=== PATIENT | female | born 1945 | race Caucasian/White ===

== ENCOUNTER 2016-06-27 15:26 | Emergency (ER) | payer OTHER ==
[2016-06-27 15:35] VITALS: BP 157/81; PULSE 88; TEMP 97.7; BMI 26.5
--- NOTE | 2016-06-27 16:07 | PDOC ---
History of Present Illness - General Chief Complaint: Injury Stated Complaint: FALL, RT WRIST PAIN Time Seen by Provider: 06/27/16 15:44 History Source: Patient Exam Limitations: No Limitations - History of Present Illness Initial Comments: CHIEF COMPLAINT: 70 y/o afebrile female with no PMH HTN, HLD, NIDDM c/o right rib pain and right wrist pain s/p slip and fall. HISTORY OF PRESENT ILLNESS: The patient slipped and fell outside today on black ice. She states she fell onto her right side and right hand. She now has right sided rib pain and right wrist pain. The patient denies head trauma, LOC, SOB, hemoptysis, n/v/d, swelling/redness to affected areas, decreased ROM of right wrist. Vital signs on arrival are within normal limits. REVIEW OF SYSTEMS: GENERAL/CONSTITUTIONAL: No fever/chills. No weakness. No weight change. HEAD, EYES, EARS, NOSE AND THROAT: No change in vision. No ear pain or discharge. No sore throat. CARDIOVASCULAR: +right rib pain. No shortness of breath. RESPIRATORY: No cough, wheezing, or hemoptysis. GASTROINTESTINAL: See history of present illness. GENITOURINARY: No dysuria, frequency, or change in urination. MUSCULOSKELETAL: +right hand and wrist pain. No neck or back pain. SKIN: No rash or easy bruising. NEUROLOGIC: No headache, vertigo, loss of consciousness, or loss of sensation. PHYSICAL EXAM: GENERAL: The patient is awake, alert, and fully oriented, in no acute distress. SHe is well appearing and ambulatory. HEAD: Normal with no signs of trauma. ENT: Pupils equal, round and reactive to light, extraocular movements intact, sclera anicteric, conjunctiva clear. Neck supple. LUNGS: Clear to auscultation bilaterally. Normal excursion. No respiratory distress or use of accessory muscles. CHEST WALL: +TTP of right midaxillary ribs from T7-T8. No flail chest. No deformities. No ecchymosis or abrasions. CV: RRR, S1/S2, no MRG. Cap refill < 2 sec. ABDOMEN: Soft, non-distended, non-tender even to deep palpation, no hepatomegaly or splenomegaly, no masses. EXTREMITIES: Normal range of motion, no edema. No erythema or ecchymosis to right forearm, wrist or hand. FROM of right wrist and hand. TTP of right wrist and 3rd and 4th metacarpal bones without obvious deformities or crepitus. NEUROLOGICAL: Normal speech, normal gait. CN II-XII grossly intact. PSYCH: Normal mood, normal affect. SKIN: Warm, dry, normal turgor, no rashes or lesions noted. Past History - Past Medical History Allergies/Adverse Reactions: Allergies Allergy/AdvReac Type Severity Reaction Status Date / Time streptomycin [Streptomycin] Allergy Intermediate Rash Verified 06/27/16 15:31 COLOGNE Allergy Uncoded 06/27/16 15:31 hair dye Allergy Uncoded 06/27/16 15:31 Home Medications: Ambulatory Orders Alendronate Na [Fosamax] 70 mg PO Q7D 01/29/15 Amlodipine Besylate 5 mg PO DAILY 01/29/15 Aspirin [ASA -] 81 mg PO DAILY 01/29/15 Canagliflozin/Metformin HCl [Invokamet 50-1,000 mg Tablet] 1 each PO DAILY 01/29 Montelukast Na [Singulair -] 10 mg PO HS 01/29/15 Simvastatin 40 mg PO DAILY 01/29/15 Diabetes: Yes (neuropathy) GI Disorders: Yes (uti) HTN: Yes Hypercholesterolemia: Yes Kidney Stones: Yes - Surgical History Orthopedic Surgery: Yes (KNEE SX, HAND SX) - Psycho/Social/Smoking Cessation Hx Anxiety: No Suicidal Ideation: No Smoking History: Never smoked Have you smoked in the past 12 months: No Number of Cigarettes Smoked Daily: 0 Information on smoking cessation initiated: No Hx Alcohol Use: No Drug/Substance Use Hx: No Substance Use Type: None *Physical Exam - Vital Signs Last Vital Signs Temp Pulse Resp BP Pulse Ox 97.7 F 88 18 157/81 97 06/27/16 15:33 06/27/16 15:33 06/27/16 15:33 06/27/16 15:33 06/27/16 15:33 Procedures - Splinting Splint Location: Right: Hand Pre-Proc Neuro Vasc Exam: normal Hand-Made Type: orthoglass Splint Type: Yes: Ulnar (ulnar guttar) Post-Proc Neuro Vasc Exam: normal Medical Decision Making - Medical Decision Making A/P: 70 y/o female with right rib and right wrist pain s/p slip and fall. Plan is as follows: 1. rib xray 2. Right hand/wrist pain Xray right hand/wrist IMPRESSION: Acute proximal fifth metacarpal fracture. Rib xray IMPRESSION: No radiographic evidence of fracture Put hand in ulnar guttar splint and provided ortho referral. Instructed her to call ortho tomorrow to schedule f/u appointment The patient verbalizes understanding of all instructions, has no further questions and is awaiting discharge. *DC/Admit/Observation/Transfer Diagnosis at time of Disposition: Fracture, metacarpal Qualifiers: Encounter type: initial encounter Metacarpal bone: fifth Fracture type: closed Fracture morphology: unspecified fracture morphology Fracture alignment: displaced Laterality: unspecified laterality - Discharge Dispostion Disposition: HOME Condition at time of disposition: Improved - Referrals Referrals: Kevin Toro MD [Primary Care Provider] - Ren Bedolla MD [Staff Physician] - Call tomorrow - Patient Instructions Printed Discharge Instructions: DI for Boxer's Fracture Additional Instructions: Discharge Instructions: -Call Dr. Bedolla tomorrow and schedule follow up appointment -Take Tylenol or motrin for pain
== END 2016-06-27 19:40 | disposition home or self-care (01) ==
LOC: JERFT 15:26
PROC: 2W38X1Z Immobilization of Right Upper Extremity using Splint (ICD-10-PCS; principal; 2016-06-27)
DX: S62.316A Displaced fracture of base of fifth metacarpal bone, right hand, initial encounter for closed fracture (principal); W00.2XXA Other fall from one level to another due to ice and snow, initial encounter; Y93.89 Activity, other specified; Y92.480 Sidewalk as the place of occurrence of the external cause; I10 Essential (primary) hypertension; E11.40 Type 2 diabetes mellitus with diabetic neuropathy, unspecified; Z79.84 Long term (current) use of oral hypoglycemic drugs; E78.00 Pure hypercholesterolemia, unspecified
CPT/HCPCS: 29125; 71101-TC-RT; 73110-TC-RT; 73130-TC-RT; 99281-25

== ENCOUNTER 2016-09-14 06:12 | Day surgery (SDC) | payer OTHER ==
[2016-09-14 06:31] VITALS: BMI 26.3
[2016-09-14 06:52] LABS: BASOPHIL 0.4 % (0-2.0); EOSINOPHIL 2.2 % (0-4.5); MCHC 33.3 g/dl (32.0-36.0); MEAN CELL VOLUME 87.1 fl (80-96); MEAN PLT VOLUME 7.9 fl (7.5-11.1); NEUTROPHILS 45.2 % (42.8-82.8); PLATELET COUNT 227 K/MM3 (134-434); RDW 14.3 % (11.6-15.6); WHITE BLOOD COUNT 5.5 K/mm3 (4.0-10.0)
[2016-09-14] MEDS ORDERED: ROPIVACAINE HCL 0.5% 30ML VIAL ONE (08:34)
[2016-09-14] MEDS ORDERED: MIDAZOLAM HCL 2 MG/2 ML SINGLE DOSE VIAL ONE ×2 (08:36)
[2016-09-14] MEDS ORDERED: LIDOCAINE HCL/PF 2% SDV 5ML VIAL ONE (08:48)
[2016-09-14] MEDS ORDERED: PROPOFOL 20 ML ONE ×2 (08:48→10:02)
--- NOTE | 2016-09-14 09:20 | HP ---
Satellite [facility] - Chief Complaint Chief Complaint: left shoulder pain - Past Medical History Allergies/Adverse Reactions: Allergies Allergy/AdvReac Type Severity Reaction Status Date / Time streptomycin [Streptomycin] Allergy Intermediate Rash Verified 06/27/16 15:31 COLOGNE Allergy Uncoded 06/27/16 15:31 hair dye Allergy Uncoded 06/27/16 15:31 - Current Medications Current Medications: Home Medications Medication Instructions Recorded Aspirin [ASA -] 81 mg PO DAILY 01/29/15 Simvastatin 20 mg PO DAILY 01/29/15 Alendronate Na [Fosamax (Weekly)] 70 mg PO Q7D 09/14/16 Glipizide [Glipizide ER] 2.5 mg PO DAILY 09/14/16 Hydrocodone/Acetaminophen 1 each PO Q6H #40 tablet MDD 4 09/14/16 [Hydrocodon-Acetaminoph 7.5-325] Isoniazid 300 mg PO DAILY 09/14/16 Metformin HCl [Metformin HCl ER] 1,000 mg PO BID 09/14/16 Pyridoxine HCl 25 mg PO DAILY 09/14/16 Satellite Physical Exam - Physical Examination Vital Signs: Vital Signs Period Temp Pulse Resp BP Sys/Mueller Pulse Ox Last 24 Hr 98.0 F 67 20 132/79 97 General Appearance: Well Nourished, Well Developed, Alert & Oriented x3 ENT: Clear Lung: Normal air movement Heart: Regular rate & rhythm Extremities: Other (left shoulder- +ttp,decr rom ,+ neer, + empty can, + cowart , nvi MRI + RCT) Neurological: Intact, Alert, Oriented Satellite Impression/Plan - Impression/Plan Impression: left shoulder rct Operative Procedure: left shoulder arthroscopy with VEL MCNEAL Date to be Performed: 09/14/16
[2016-09-14] MEDS ORDERED: oxyCODONE HCL 5 MG TABLET PO PRN (09:41)
[2016-09-14] MEDS ORDERED: ONDANSETRON 4 MG/2 ML VIAL IVPUSH PRN (09:41)
[2016-09-14] MEDS ORDERED: LACTATED RINGERS SOLUTION 1,000 ML IV SCH (09:45)
[2016-09-14] MEDS ORDERED: ePHEDrine SULFATE 50 MG/1 ML AMPULE ONE (09:55)
[2016-09-14] MEDS ORDERED: ceFAZolin SODIUM 1 GM VIAL IVPB ONE ×2 (10:04→10:05)
[2016-09-14] MEDS ORDERED: DEXAMETHASONE SOD PHOSPHATE 4 MG/1 ML VIAL ONE ×2 (10:30→10:45)
[2016-09-14] MEDS ORDERED: ceFAZolin SODIUM 1 GM VIAL ONE (10:53)
--- NOTE | 2016-09-14 11:30 | OP ---
Operative Note - Note: Operative Date: 09/14/16 Pre-Operative Diagnosis: left shoulder RTC tear, subacromial impingement, partial biceps tendon rupture Operation: left shoulder arthroscopy, subacromial decompression, extensive debridement, mini open RTC repair Implants: Arthrex Swivel Lock anchor x 2, fiber wire Surgeon: Ren Bedolla Lasting Room Machine Operator: Charlie Cintron Anesthesiologist/EVP [employer] EXPERIENCE STRATEGY: Alayna Weaver Anesthesia: General, Local Specimens Removed: shavings Estimated Blood Loss (mls): 75 Drains, Volume Out (mls): 0 Blood Volume Replaced (mls): 0 Fluid Volume Replaced (mls): 1,000 Operative Report Dictated: Yes
[2016-09-14 12:04] VITALS: TEMP 97.6
[2016-09-14] MEDS ORDERED: ACETAMINOPHEN 325 MG TABLET (FP) ONE (14:31)
[2016-09-14 15:38] VITALS: PULSE 100
[2016-09-14 17:58] VITALS: BP 130/74
--- NOTE | 2016-09-15 12:01 | OP ---
DATE OF OPERATION: 09/14/2016 PREOPERATIVE DIAGNOSIS: Left shoulder impingement syndrome and rotator cuff tear. POSTOPERATIVE DIAGNOSIS: Left shoulder impingement syndrome and rotator cuff tear. PROCEDURE: Left shoulder arthroscopy, subacromial decompression, extensive debridement, and mini open rotator cuff repair. SURGEON: Naun Pedersen MD COMPLIANCE PARALEGAL: DEVI Rider, ANESTHESIA: Alayna Weaver CRNA. Left interscalene block, LMA anesthesia. DRAINS: None. COMPLICATIONS: None. BLOOD LOSS: 50 mL. BLOOD GIVEN: None. FLUID REPLACEMENT: 1000 mL Plasma-Lyte INDICATIONS: This patient is a 70-year-old female with a preoperative diagnosis of a left shoulder subacromial impingement, partial biceps tendon rupture, and rotator cuff tear. After understanding the potential risks, complications, alternatives, benefits to surgery versus nonsurgical treatment, the patient elected to undergo this procedure. DESCRIPTION OF PROCEDURE: The patient was brought to the operating room. Peripheral IV place. IV sedation given. Left interscalene block was performed. Then 1 g IV Ancef was given. She was placed into the beach chair position with ample padding throughout. The left upper extremity was prepped and draped in the usual sterile fashion. The bony landmarks were marked out with a marking pen. The posterior portal established. Diagnostic glenohumeral arthroscopy was performed. The patient was seen to have a bad shoulder. She had significant rotator cuff tear where the humeral head was already in contact with the undersurface of the acromion. She had a 50% biceps tendon rupture. Therefore, an anterior portal was established. Using the straight shaver under direct visualization, I debrided the torn portion of the biceps, but enough was left in place. I believe it will be functional and less painful. There is a lot of cartilage and loose debris floating around the joint. This was removed. The undersurface of the rotator cuff tear was mildly debrided. Partial synovectomy was performed in the joint. Next, our attention was turned to the subacromial space. A lateral portal was established under direct visualization with a spinal needle. A No. 15 scalpel blade and a green cannula was introduced into the joint. The patient had an extensive amount of inflammatory bursitis. This was removed with the ArthroCare wand and the straight shaver. After extensive debridement, I was able to see a large subacromial spur and a large crescent-shaped rotator cuff tear. Luckily, we were able to grab the rotator cuff with a grasper. I feel there was good substance for repair, and it was not as retracted as expected. Next, a 5.5-mm oval bur was used to take down a subacromial spur. It was straightened up with the bur and reversed in the shaver. Photographs were taken before and after. The entire area was extensively irrigated and washed out. Under direct visualization, 6 FiberWires were placed throughout the rotator cuff with the Intelomed needle passer. Next, we converted to a mini open rotator cuff repair. The incision was extended with a No. 15 scalpel blade. Subcutaneous hemostasis was achieved with the Bovie cautery. Elvira retractor placed into the wound. Additional open bursectomy was performed. The rotator cuff was visualized. I was able to mobilize it after using a Galvez elevator for mobilization and break into scar tissue and additional bursa then came down quite nicely. The bed was prepared. Additional bursectomy performed. The patient had very sharp spurs on the humeral head at the insertion of the rotator cuff. These were taken down and the area mildly decorticated with the bur. I was able to feel my finger and look at it, and there were no other osteophytes. It looked much better than before. Next, using a standard technique, we put 6 tails through a posterior and 6 tails through an anterior SwiveLock Arthrex anchor. Put the posterior one down first then the anterior one. They both came down quite nicely. The rotator cuff was brought down to the humeral head. It moved as a unit with the humerus, and overall the repair was quite good. The area was irrigated and washed out. The deltoid fascial layer closed with 0 Vicryl suture, 2-0 Vicryl used to close the deep dermal layer. Running subcuticular 3-0 V-Lock suture was used. The anterior and posterior portal was closed with 3-0 nylon. The main incision was covered with SwiftSet skin glue, Steri-Strips, and all 3 were covered with Aquacel dressing. Total operative time about 1 hour. Blood loss was about 75 mL. There were no complications during the case. The patient tolerated the procedure well. She was put into a shoulder immobilizer, extubated, and brought to the ambulatory recovery room in stable condition. NAUN PEDERSEN M.D. [id number]
--- NOTE | 2016-09-15 12:35 | PATH ---
Surgical Pathology Report Patient Name: BESSIE GONSALES [facility]. Rec. #: [id number] /Age/Gender: 1945 (Age: 70) / F Account: [id number] Location: [facility] Taken: 09/14/2016 Received: 09/14/2016 Reported: 09/15/2016 Physicians: Ren Bedolla M.D. Specimen(s) Received SHAVINGS LEFT SHOULDER Clinical History Tear left shoulder Final Diagnosis SOFT TISSUE, LEFT SHOULDER, ARTHROSCOPIC SHAVINGS: SYNOVIUM AND FIBROCARTILAGE WITH MYXOHYALINE DEGENERATION AND GRANULATION TISSUE. FRAGMENTS OF UNREMARKABLE BONE AND SKELETAL MUSCLE. Electronically Signed Delonte Gill M.D. Gross Description Received in formalin, labeled "left shoulder shavings" is a 3.5 x 2.6 x 0.3 cm aggregate of castañeda-yellow soft tissue fragments. A assisted sales representative portion is submitted in one cassette. 09/14/201609/14/2016
== END 2016-09-14 17:55 | disposition home or self-care (01) ==
LOC: JASU-SURG 06:12
PROVIDERS: ATTEND Orthopaedic Surgery
PROC: 0RBK4ZZ Excision of Left Shoulder Joint, Percutaneous Endoscopic Approach (ICD-10-PCS; principal; 2016-09-14 09:00)
PROC: 0LQ20ZZ Repair Left Shoulder Tendon, Open Approach (ICD-10-PCS; 2016-09-14 09:00)
DX: M75.42 Impingement syndrome of left shoulder (principal); M75.102 Unspecified rotator cuff tear or rupture of left shoulder, not specified as traumatic
CPT/HCPCS: 36415; 85025; 88304-TC; 94760

== ENCOUNTER 2016-09-17 16:44 | Emergency (ER) | payer OTHER ==
[2016-09-17 17:16] VITALS: BP 178/87; PULSE 101; TEMP 98; BMI 30.2
[2016-09-17] MEDS ORDERED: SODIUM PHOSPHATE/NA BIPHOS 133 ML ENEMA PR ONE (17:49)
--- NOTE | 2016-09-17 17:53 | PDOC ---
History of Present Illness - History of Present Illness Initial Comments: 09/17/16 19:37 Patient is a 70 year old female, s/p left shoulder arthroscopy (09/14/16), with significant medical hx of diabetes and nephrolithiasis who is presenting to the ED with constipation for three days. Patient is accompanied by family members who provided history. The patient is complaining of constipation and rectal pain since starting hydrocodone from her shoulder surgery earlier this week. Today the patient took two oral laxatives and a rectal enema with no relief. Her last bowel movement was on 09/13, one day before her surgery. She denies any abdominal pain, nausea, vomiting, fevers or chills. Pt denies feeling like there stool that will not pass. PMD: Kevin Toro MD Allergies: streptomycin Surgical Hx: Left shoulder arthroscopy, renal stent placement and removal, c- section <Genet Liang - Last Filed: 09/17/16 19:37> - General History Source: Patient Exam Limitations: No Limitations <Wood Orlando - Last Filed: 09/17/16 20:23> - General Chief Complaint: Constipation Stated Complaint: CONSTIPATION Time Seen by Provider: 09/17/16 17:12 Past History <Genet Liang - Last Filed: 09/17/16 19:37> - Past Medical History Anemia: No Asthma: No Cancer: No Cardiac Disorders: No CVA: No COPD: No CHF: No Dementia: No Diabetes: Yes (neuropathy) GI Disorders: Yes (uti) Disorders: Yes (KIDNEY STONES) HTN: Yes Hypercholesterolemia: Yes Kidney Stones: Yes Liver Disease: No Seizures: No Thyroid Disease: No - Surgical History Abdominal Surgery: No Appendectomy: No Cardiac Surgery: No Cholecystectomy: No Lung Surgery: No Neurologic Surgery: No Orthopedic Surgery: Yes (KNEE SX, HAND SX) - Psycho/Social/Smoking Cessation Hx Anxiety: No Suicidal Ideation: No Smoking History: Never smoked Have you smoked in the past 12 months: No Number of Cigarettes Smoked Daily: 0 Hx Alcohol Use: No Drug/Substance Use Hx: No Substance Use Type: None <Wood Orlando - Last Filed: 09/17/16 20:23> - Past Medical History Allergies/Adverse Reactions: Allergies Allergy/AdvReac Type Severity Reaction Status Date / Time streptomycin [Streptomycin] Allergy Intermediate Rash Verified 09/17/16 17:07 COLOGNE Allergy Uncoded 09/17/16 17:07 hair dye Allergy Uncoded 09/17/16 17:07 Home Medications: Ambulatory Orders Alendronate Na [Fosamax] 70 mg PO Q7D 09/17/16 Glipizide 2.5 mg PO DAILY 09/17/16 Hydrocodone/Acetaminophen [Hydrocodon-Acetaminoph 2.5-325] 1 each PO PRN PRN 01/26 Isoniazid 300 mg PO DAILY 09/17/16 Lisinopril 5 mg PO DAILY 09/17/16 Metformin HCl [Metformin HCl ER] 1,000 mg PO BID 09/17/16 Polyethylene Glycol 3350 [Miralax (For Bowel Prep) -] 17 gm PO DAILY #1 bottle 09/17/16 Pyridoxine HCl 25 mg PO DAILY 09/17/16 Review of Systems - Review of Systems Comments:: 09/17/16 19:38 CONSTITUTIONAL: No reported: Fever, Chills, Diaphoresis, Generalized Weakness, Malaise, Loss of Appetite HEENT: No reported: Rhinorrhea, Nasal Congestion, Throat Pain, Throat Swelling, Difficulty Swallowing, Mouth Swelling, Ear Pain, Eye Pain, Visual Changes CARDIOVASCULAR: No reported: Chest Pain, Syncope, Palpitations, Irregular Heart Rate, Lightheadedness, Peripheral Edema RESPIRATORY: No reported: Cough, Shortness of Breath, SOB with Exertion, Orthopnea, Wheezing , Stridor, Hemoptysis GASTROINTESTINAL: Reported: Constipation, Rectal Pain No reported: Abdominal pain, Abdominal Distension, Nausea, Vomiting, Diarrhea, Melena, Hematochezia GENITOURINARY: No reported: Dysuria, Frequency, Urgency, Hesitancy, Flank Pain, Genital Pain MUSCULOSKELETAL: No reported: Myalgia, Arthralgia, Joint Swelling, Back pain, Neck Pain SKIN: No reported: Rash, Itching, Pallor HEMEATOLOGIC/IMMUNOLOGIC: No reported: Easy Bleeding, Easy Bruising, Lymphadenopathy, Frequent infections ENDOCRINE: No reported: Unexplained Weight Gain, Unexplained Weight Loss, Heat Intolerance , Cold Intolerance NEUROLOGIC: No reported: Headache, Focal Weakness, Paresthesias, Vertigo, Lightheadedness, Unsteady Gait, Seizure, Mental Status Changes, Incontinence PSYCHIATRIC: No reported: Anxiety, Depression <Genet Liang - Last Filed: 09/17/16 19:37> *Physical Exam - Vital Signs Last Vital Signs Temp Pulse Resp BP Pulse Ox 98.0 F 101 H 20 178/87 97 09/17/16 17:06 09/17/16 17:06 09/17/16 17:06 09/17/16 17:06 09/17/16 17:06 - Physical Exam Comments: 09/17/16 19:38 GENERAL: The patient is awake, alert, and fully oriented, Nontoxic - in no acute distress. obese HEAD: Normocephalic, atraumatic. EYES: extraocular movements intact, sclera anicteric, conjunctiva clear. ENT: Normal voice, Moist mucous membranes. NECK: Normal range of motion, supple LUNGS: Breath sounds equal, clear to auscultation bilaterally. No wheezes, no rhonchi, no rales. HEART: Regular rate and rhythm, without murmur, rub or gallop. ABDOMEN: Soft, nontender, nondistended, normoactive bowel sounds. No guarding, no rebound.No CVA tenderness MUSCULOSKELETAL: Bandages to left shoulder which are intact, no signs of erythema, no tenderness to palpation. NEUROLOGICAL: No facial assymetry, Normal speech, PSYCH: Normal mood, normal affect. SKIN: Warm, Dry, normal turgor <Genet Liang - Last Filed: 09/17/16 19:37> - Vital Signs Last Vital Signs Temp Pulse Resp BP Pulse Ox 98.0 F 101 H 20 178/87 97 09/17/16 17:06 09/17/16 17:06 09/17/16 17:06 09/17/16 17:06 09/17/16 17:06 <Wood Orlando - Last Filed: 09/17/16 20:23> ED Treatment Course - Medications Given in the ED: ED Medications Discontinued Medications Generic Name Dose Route Start Last Admin Trade Name Freq PRN Reason Stop Dose Admin Sodium Phosphate 133 ml 09/17/16 17:49 09/17/16 18:11 Fleet Adult Rectal Enema - IN 09/17/16 17:50 133 ml ONCE ONE Administration <Genet Liang - Last Filed: 09/17/16 19:37> Medical Decision Making - Medical Decision Making 09/17/16 17:52 70y F s/p L shoulder surgery currently oipoids presents with constipation and lower abd pain, no associated n/v, f/c/d, pt tried exlax and an enema without success. abd is soft nontender will try relistor and will give fleet enema will reassess 09/17/16 20:18 pt feeling improved had a large BM after the fleet enema current no abd pain, abd is soft nontender will d/c th ept with miralax will have pt stop taking vicodin if possible I discussed the physical exam findings, ancillary test results and final diagnoses with the patient. I answered all of the patient's questions. The patient was satisfied with the care received and felt comfortable with the discharge plan and treatment plan. The patient will call their primary care physician within 24 hours to arrange follow-up and will return to the Emergency Department with any new, persistent or worsening symptoms. A portion of this note was documented by scribe services under my direction. I have reviewed the details of the note, within reason, and agree with the documentation with the following case summary and management plan written by me <Wood Orlando - Last Filed: 09/17/16 20:23> *DC/Admit/Observation/Transfer - Attestations Scribe Attestion: 09/17/16 19:38 Documentation prepared by Genet Liang, acting as medical lab technologist for Wood Orlando MD. <Genet Liang - Last Filed: 09/17/16 19:37> - Discharge Dispostion Admit: No <Wood Orlando - Last Filed: 09/17/16 20:23> Diagnosis at time of Disposition: Constipation Qualifiers: Constipation type: drug induced constipation Qualified Code(s): K59.03 - Drug induced constipation - Discharge Dispostion Disposition: HOME Condition at time of disposition: Improved - Referrals Referrals: Kevin Toro MD [Primary Care Provider] - - Patient Instructions Printed Discharge Instructions: DI for Constipation, Increased Dietary Fiber May Improve Constipation Conditions With Pelvic Harvey Additional Instructions: Return to the emergency department immediately with ANY new, persistent or worsening symptoms including worsening abdominal pain, fevers, chills, inability to tolerate oral intake or any other concerns. Please increase your water intake, increasing physical activity and increase her fiber intake Stop taking the vicodin if possible. Take the miralax daily You MUST call and follow up with your doctor tomorrow for further evaluation of your symptoms. Your emergency department visit is not complete without a followup with your doctor for reevaluation. Results were discussed with you. Please make sure your doctor reviews the results of your emergency evaluation. Print Language: SAMOAN
[2016-09-17] MEDS ORDERED: Methylnaltrexone Bromide 12 MG/0.6 ML KIT SQ SCH (18:00)
== END 2016-09-17 20:37 | disposition home or self-care (01) ==
LOC: JER 16:44
PROC: 3E023GC Introduction of Other Therapeutic Substance into Muscle, Percutaneous Approach (ICD-10-PCS; principal; 2016-09-17)
DX: K59.03 Drug induced constipation (principal); I10 Essential (primary) hypertension; E78.00 Pure hypercholesterolemia, unspecified; N20.0 Calculus of kidney
CPT/HCPCS: 96372; 99282-25

== ENCOUNTER 2016-11-30 09:28 | Day surgery (SDC) | payer OTHER ==
[2016-11-29 17:02] VITALS: BMI 26.3
--- NOTE | 2016-11-30 09:23 | HP ---
[facility] - Chief Complaint Chief Complaint: right cts - Past Medical History Allergies/Adverse Reactions: Allergies Allergy/AdvReac Type Severity Reaction Status Date / Time streptomycin [Streptomycin] Allergy Intermediate Rash Verified 09/17/16 17:07 COLOGNE Allergy Uncoded 09/17/16 17:07 hair dye Allergy Uncoded 09/17/16 17:07 - Current Medications Current Medications: Home Medications Medication Instructions Recorded Alendronate Na [Fosamax (Weekly)] 70 mg PO Q7D 09/17/16 Glipizide 2.5 mg PO DAILY 09/17/16 Isoniazid 300 mg PO DAILY 09/17/16 Lisinopril 5 mg PO DAILY 09/17/16 Metformin HCl [Metformin HCl ER] 1,000 mg PO BID 09/17/16 Polyethylene Glycol 3350 [Miralax 17 gm PO DAILY #1 bottle 09/17/16 255 gm Btl -] Pyridoxine HCl 25 mg PO DAILY 09/17/16 Hydrocodone/Acetaminophen [[place] 1 - 2 each PO Q6H #40 tablet MDD 8 11/30/16 5-325 Tablet] Satellite Physical Exam - Physical Examination General Appearance: Well Nourished, Well Developed, Alert & Oriented x3 ENT: Clear Lung: Normal air movement Heart: Regular rate & rhythm Extremities: Other (right hand- + ttp, + tinels, + phalens emg _ cts) Neurological: Intact, Alert, Oriented Satellite Impression/Plan - Impression/Plan Impression: right cts Operative Procedure: right ctr Date to be Performed: 11/30/16
[2016-11-30] MEDS ORDERED: BUPIVACAINE HCL/PF 0.5% (5MG/ML) 10 ML VIAL ONE (11:17)
[2016-11-30] MEDS ORDERED: ONDANSETRON 4 MG/2 ML VIAL IVPUSH PRN (11:41)
[2016-11-30] MEDS ORDERED: PROMETHAZINE HCL 25 MG/1 ML VIAL IVPUSH PRN (11:41)
[2016-11-30] MEDS ORDERED: LACTATED RINGERS SOLUTION 1,000 ML IV SCH (11:45)
[2016-11-30] MEDS ORDERED: ceFAZolin SODIUM 1 GM VIAL IVPB ONE (11:46)
[2016-11-30] MEDS ORDERED: BUPIVACAINE HCL/PF 0.5% (5MG/ML) 10 ML VIAL IJ ONE (12:02)
[2016-11-30] MEDS ORDERED: LIDOCAINE HCL 1%, 10 MG/ML (20ML VIAL) IJ ONE (12:02)
--- NOTE | 2016-11-30 12:10 | OP ---
Operative Note - Note: Operative Date: 11/30/16 ([facility]) Pre-Operative Diagnosis: right cts Operation: right ctr Post-Operative Diagnosis: Same as Pre-op Surgeon: Ren Bedolla Anesthesiologist/POPULATION GENETICIST: Christoph Madsen Anesthesia: Local, MAC Estimated Blood Loss (mls): 0 (tourniquet) Operative Report Dictated: Yes
[2016-11-30 13:26] VITALS: TEMP 98
[2016-11-30 16:24] VITALS: BP 142/77; PULSE 80
--- NOTE | 2016-11-30 18:11 | SPEC ---
DATE OF OPERATION: 11/30/2016 PREOPERATIVE DIAGNOSIS: Right carpal tunnel syndrome. POSTOPERATIVE DIAGNOSIS: Right carpal tunnel syndrome. PROCEDURE: Right carpal tunnel release and tenosynovectomy. SURGEON: Ren Bedolla MD EMPLOYMENT COACH: None. ANESTHESIOLOGIST: Christoph Madsen CRNA ANESTHESIA: MAC anesthesia, local injection of 12 mL of 0.5% Marcaine, 1% lidocaine mixture. DRAINS: None. COMPLICATIONS: None. FLUID REPLACEMENT: 500 mL. SPECIMENS: Tenosynovium, right wrist. ESTIMATED BLOOD LOSS: None. BLOOD GIVEN: None. INDICATIONS: This patient is a 71-year-old female with preoperative diagnosis of right carpal tunnel syndrome. She has had it for quite some time. The EMG from July 2014 showed carpal tunnel syndrome. She was advised to do the surgery many years ago, she just chose not to. She understands this likely will lead to inferior surgical results and a continuation of more of her numbness. This was discussed extensively preoperatively. She, her son and daughter all understand this and all questions and concerns were addressed. DESCRIPTION OF PROCEDURE: The patient was brought to the operating room, peripheral IV placed and intravenous sedation was given. One gram of intravenous Ancef was given. MAC anesthesia was induced. A tourniquet was applied to the right upper arm and the right upper extremity was prepped and draped in sterile fashion. The entire case was done under 3.8 loupe magnification. A marking pen was utilized to rojelio out a longitudinal incision in an already existing skin crease. Twenty mL of 0.5% Marcaine mixed with 1% Lidocaine was injected in and around the surgical incision. The right upper extremity was elevated, exsanguinated with an Esmarch bandage and the tourniquet inflated to 250 mmHg. A No. 15 scalpel blade was utilized to cut down through the skin. Subcutaneous hemostasis was achieved with the bipolar cautery. Dissection was done through the superficial palmar fascia. Self-retaining retractors were placed into the wound. Under direct visualization, the transverse carpal ligament was transected with a No. 15 scalpel blade, exposing the median nerve and the contents of the carpal tunnel. The distal and proximal extents of the release were completed with a Littler scissor and checked with irrigation and my small finger. They were seen to be complete. Limited dissection was done on the radial side of the median nerve and more extensive dissection was done on the ulnar side of the median nerve. The patients nerve was seen to be quite compressed by epineurium and therefore a limited epineurotomy was performed. A Ragnell retractor was used to gently retract the median nerve in a radial direction. The patient had a lot of tenosynovitis and therefore a tenosynovectomy was performed off all 9 flexor tendons. This was passed off the field as tenosynovium right wrist. The floor of the carpal tunnel was checked. There were no abnormal masses or ganglion cysts. The area was copiously irrigated and washed out and closure begun. Undyed 4-0 Vicryl was used to close the deep dermal layer. Final skin reapproximation was done with horizontal mattress 4-0 nylon sutures. The area was then washed and dried, covered with Xeroform, 4x4s, fluffs between the fingers, Webril and a 4-inch plaster roll was utilized to make a volar splint, which was then wrapped with Natanael and Coban. The tourniquet was taken down after a total tourniquet time of 18 minutes. There were no complications during the case. The patient tolerated the procedure well and was brought to the ambulatory recovery room in stable condition. COMPLICATIONS: None. Marj [id number]
--- NOTE | 2016-12-01 16:14 | PATH ---
Surgical Pathology Report Patient Name: BESSIE GONSALES [facility]. Rec. #: [id number] /Age/Gender: 1945 (Age: 71) / F Account: [id number] Location: [facility] SURGICAL Taken: 11/30/2016 Received: 11/30/2016 Reported: 12/01/2016 Physicians: Ren Bedolla M.D. Specimen(s) Received TENOSYNOVIUM Clinical History Carpal tunnel syndrome Final Diagnosis TENOSYNOVIUM, RIGHT, CARPAL TUNNEL RELEASE: BENIGN TENOSYNOVIAL FIBROCONNECTIVE TISSUE WITH FOCAL MYXOID DEGENERATION. Electronically Signed Delonte Gill M.D. Gross Description Received in formalin labeled "tenosynovium" is a 1.8 x 1.3 x 0.3 cm aggregate of castañeda-yellow, irregular portions of soft tissue, consistent with tenosynovium. The specimen is submitted in toto in one cassette. /11/30/201611/30/2016
== END 2016-11-30 14:40 | disposition home or self-care (01) ==
LOC: JASU-SURG 09:28
PROVIDERS: ATTEND Orthopaedic Surgery
PROC: 0LB60ZZ Excision of Left Lower Arm and Wrist Tendon, Open Approach (ICD-10-PCS; 2016-11-30)
PROC: 01N50ZZ Release Median Nerve, Open Approach (ICD-10-PCS; principal; 2016-11-30 11:00)
DX: G56.01 Carpal tunnel syndrome, right upper limb (principal); M65.88 Other synovitis and tenosynovitis, other site
CPT/HCPCS: 88304-TC; 94760

== ENCOUNTER 2018-05-28 09:44 | Inpatient (IN) | payer OTHER ==
--- NOTE | 2018-05-28 10:36 | PDOC ---
History of Present Illness - General Chief Complaint: Hemoptysis Stated Complaint: Vomiting Blood Time Seen by Provider: 05/28/18 09:59 History Source: Family (Daughter ) Exam Limitations: Language Barrier - History of Present Illness Initial Comments: 05/28/18 10:42 Patient is a 72 year old female with a PMHx of NIDDMII, HLD, Osteoporosis, Lung Aspergillosis, hx of TB (treated for 9 months) three years ago who presented to the ED after coughing up blood. According to patients daughter at bedside, patient woke up around 0740 today and coughed up a handful of bright red blood associated with throat pain and rhinorrhea. Patient also reports right intermittent pleuritic pain that occurred only when she coughed up blood. Patient reports chronic dry cough for the last three years. Patient diagnosed with Aspergillosis three years ago and was on Virconozole Patient was also diagnosed with TB three years ago with (+) Quanteferon, treated by Dr. Rogel for 9 months Recent history of travel to [facility] from 11/2017- 02/2018 Denies being around sick patients Had her flu shot this year Otherwise, patient denies any shortness of breath, tachycardic, abdominal pain, fevers, chills, nausea, vomiting, diarrhea, constipation, melena, hematochezia, hematuria, LOC, dizziness. 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 Denies alcohol use Denies drug use Denies smoking Medications: Metformin 1000mg BID Glipizide 2.5mg daily Metoprolol 25mg BID ASA 81mg daily Simvastatin 20mg daily Fosamax 70mg/ weekly Allergies: Streptomycin Past History - Past Medical History Allergies/Adverse Reactions: Allergies Allergy/AdvReac Type Severity Reaction Status Date / Time streptomycin [Streptomycin] Allergy Intermediate Rash Verified 09/17/16 17:07 COLOGNE Allergy Uncoded 09/17/16 17:07 hair dye Allergy Uncoded 09/17/16 17:07 Home Medications: Ambulatory Orders Alendronate Na [Fosamax (Weekly)] 70 mg PO Q7D 09/17/16 Glipizide 2.5 mg PO DAILY 09/17/16 Metformin HCl [Metformin HCl ER] 1,000 mg PO BID 09/17/16 Aspirin 81 mg PO DAILY 05/28/18 Azithromycin 250 mg PO DAILY 05/28/18 Omeprazole 20 mg PO DAILY 05/28/18 Simvastatin 20 mg PO HS 05/28/18 Anemia: No Asthma: No Cancer: No Cardiac Disorders: No CVA: No COPD: No CHF: No Dementia: No Diabetes: Yes (neuropathy) GI Disorders: Yes (uti) Disorders: Yes (KIDNEY STONES) HTN: Yes Hypercholesterolemia: Yes Kidney Stones: Yes Liver Disease: No Seizures: No Thyroid Disease: No Other medical history: ASPERGILLOSIS - Surgical History Abdominal Surgery: No Appendectomy: No Cardiac Surgery: No Cholecystectomy: No Lung Surgery: No Neurologic Surgery: No Orthopedic Surgery: Yes (KNEE SX, HAND SX left shoulder) - Immunization History Immunization Up to Date: Yes - Suicide/Smoking/Psychosocial Hx Smoking History: Never smoked Have you smoked in the past 12 months: No Number of Cigarettes Smoked Daily: 0 Hx Alcohol Use: No Drug/Substance Use Hx: No Substance Use Type: None Review of Systems - Review of Systems Constitutional: No: Fever, Night Sweats, Weakness, Unexplained wgt Loss HEENTM: Yes: Nose Congestion, Throat Pain. No: Double Vision, Ear Discharge Respiratory: Yes: Cough (blood), Hemoptysis. No: Shortness of Breath, SOB with Exertion, SOB at Rest, Wheezing, Productive cough Cardiac (ROS): No: Chest Pain, Edema, Irregular Heart Rate, Lightheadedness, Palpitations, Syncope, Chest Tightness ABD/GI: No: Constipated, Diarrhea, Difficulty Swallowing, Nausea, Poor Appetite , Rectal Bleeding, Vomiting, Abdominal cramping : No: Burning, Dysuria, Discharge, Flank Pain, Hematuria Integumentary: No: Bruising, Dryness, Erythema Neurological: No: Headache, Numbness, Paresthesia, Dizziness Psychiatric: No: Anxiety, Depression Endocrine: No: Flushing Hematologic/Lymphatic: No: Anemia, Blood Clots, Easy Bleeding *Physical Exam - Vital Signs Last Vital Signs Temp Pulse Resp BP Pulse Ox 98.2 F 90 18 151/85 96 05/28/18 09:44 05/28/18 09:44 05/28/18 09:44 05/28/18 09:44 05/28/18 09:44 - Physical Exam General Appearance: Yes: Nourished, Appropriately Dressed, Other (Awake, alert and in no acute distress ) HEENT: positive: Normal ENT Inspection, Normal Voice, Pharynx Normal. negative : Pharyngeal Erythema, Tonsillar Erythema, Rhinorrhea, Sinus Tenderness Neck: positive: Trachea midline, Supple. negative: Lymphadenopathy (R), Lymphadenopathy (L), Rigidity, Tender lateral Respiratory/Chest: positive: Lungs Clear, Normal Breath Sounds. negative: Respiratory Distress, Accessory Muscle Use, Decreased Breath Sounds, Crackles, Rales, Rhonchi, Stridor, Wheezing Cardiovascular: positive: Regular Rhythm, Regular Rate. negative: Edema, JVD, Tachycardia Gastrointestinal/Abdominal: positive: Soft. negative: Distended, Tenderness, Hepatomegaly, Spleenomegaly Musculoskeletal: positive: Normal Inspection. negative: CVA Tenderness (R), CVA Tenderness (L), Decreased Range of Motion, Muscle Spasm Extremity: positive: Normal Capillary Refill, Normal Inspection, Normal Range of Motion. negative: Coldness, Cyanosis, Delayed Capillary Refill, Pedal Edema , Swelling, Calf Tenderness, Erythema Integumentary: positive: Normal Color Neurologic: positive: operating room rn II-XII NML intact, Fully Oriented, Alert, Normal Mood/ Affect, Normal Response, Motor Strength 5/5 Moderate Sedation - Procedure Monitoring Vital Signs: Procedure Monitoring Vital Signs Temperature 98.2 F 05/28/18 09:44 Pulse Rate 90 05/28/18 09:44 Respiratory Rate 18 05/28/18 09:44 Blood Pressure 151/85 05/28/18 09:44 O2 Sat by Pulse Oximetry (%) 96 05/28/18 09:44 ED Treatment Course - LABORATORY CBC & Chemistry Diagram: 05/28/18 11:18 05/28/18 11:18 Progress Note - Progress Note Progress Note: Patient presents with hemoptysis associated with right sided pleuritic chest pain. Given patients risk factors of recent travel to [facility], hx of TB, hx of Aspergillus, differential diagnosis includes, but not limited to, TB,malignancy , and PE. -Will order Quanteferon -CBC, CMP,LACTIC -CTA -cultures -ID consult -Pulm consult -BNP -TROPS -CXR 05/27/18 1106 -Chest X-Ray revealed no acute pathology -Awaiting CTA 05/27/18 1447 -CTA negative for PE but shows aspergilloma -Spoke to ID, Dr. Parnell. Will order AFB X3 -Admit to Dr. Toro *DC/Admit/Observation/Transfer Diagnosis at time of Disposition: Tuberculosis, Pulmonary aspergilloma - Discharge Dispostion Decision to Admit order: Yes - Referrals Referrals: Eyad Toro MD [Primary Care Provider] - - Patient Instructions - Post Discharge Activity
--- NOTE | 2018-05-28 11:08 | PDOC ---
Attending Attestation - Resident Resident Name: EdwigenaomiRoxanneHanna - ED Attending Attestation I have performed the following: I have examined & evaluated the patient, The case was reviewed & discussed with the resident, I agree w/resident's findings & plan, Exceptions are as noted - HPI HPI: 05/28/18 11:04 72-year-old female patient with history of left shoulder arthroscopy, diabetes, hypertension, history of tuberculosis and pulmonary Aspergillus resents with small dose of hemoptysis this morning. Patient has history of chronic cough. Stated this morning had a small episode of hemoptysis. Also reported some small amount of pleuritic right-sided chest pain. No fevers or chills. Denies shortness of breath. Does report a mild right-sided pleuritic chest pain. Patient called her doctor and came to the ER. Upon arrival to the ED, the patient was seen by her primary care physician, Dr. Kevin Toro. Patient was treated several years ago for Aspergillus where she received sputum cultures and bronchoscopy. She was treated by infectious disease specialist, Dr. Rogel and prototype engineer manager, Dr. Haney. - Physicial Exam PE: 05/28/18 11:04 GENERAL: Awake, alert, and fully oriented, in no acute distress HEAD: No signs of trauma EYES: PERRLA, EOMI ENT: Auricles normal inspection, hearing grossly normal, nares patent, Moist mucosa NECK: Normal ROM, supple LUNGS: Breath sounds equal, clear to auscultation bilaterally. No wheezes, and no crackles HEART: Regular rate and rhythm, normal S1 and S2, no murmurs, rubs or gallops ABDOMEN: Soft, nontender, No guarding, no rebound. No masses EXTREMITIES: Normal range of motion, no edema. No clubbing or cyanosis. No cords, erythema, or tenderness NEUROLOGICAL: Cranial nerves II through XII grossly intact. Normal speech SKIN: Warm, Dry, normal turgor, no rashes or lesions noted. - Medical Decision Making 05/28/18 11:07 Vital Signs Temp Pulse Resp BP Pulse Ox 98.2 F 90 18 151/85 96 05/28/18 09:44 18 09:44 05/28/18 09:44 05/28/18 09:44 05/28/18 09:44 72-year-old female presents with small amounts of hemoptysis. The patient is quite a vastly stable and in no respiratory distress. We'll need to rule out pulmonary was him, tuberculosis, Aspergillus, malignancy. We'll obtain labs, cultures, CAT scan of the chest to rule out pulmonary embolism. The patient should be admitted ultimately for full rule out of TB. Patient is placed on isolation precautions. 05/28/18 14:52 CBC, BMP 05/28/18 11:18 05/28/18 11:18 CMP Sodium 139 mmol/L (136-145) 05/28/18 11:18 Potassium 4.1 mmol/L (3.5-5.1) 05/28/18 11:18 Chloride 105 mmol/L (98-107) 05/28/18 11:18 Carbon Dioxide 24 mmol/L (21-32) 05/28/18 11:18 Anion Gap 10 MMOL/L (8-16) 05/28/18 11:18 BUN 15 mg/dL (7-18) 05/28/18 11:18 Creatinine 0.6 mg/dL (0.55-1.3) 05/28/18 11:18 Creat Clearance w eGFR > 60 (>60) 05/28/18 11:18 Random Glucose 141 mg/dL (74-106) H 05/28/18 11:18 Lactic Acid 1.9 mmol/L (0.4-2.0) 05/28/18 11:18 Calcium 8.7 mg/dL (8.5-10.1) 05/28/18 11:18 Total Bilirubin 0.5 mg/dL (0.2-1) 05/28/18 11:18 AST 18 U/L (15-37) 05/28/18 11:18 ALT 22 U/L (13-61) 05/28/18 11:18 Alkaline Phosphatase 82 U/L (45-117) 05/28/18 11:18 Troponin I < 0.02 ng/ml (0.00-0.05) 05/28/18 11:18 B-Natriuretic Peptide 144.8 pg/ml (5-125) H 05/28/18 11:18 Total Protein 7.6 g/dl (6.4-8.2) 05/28/18 11:18 Albumin 4.0 g/dl (3.4-5.0) 05/28/18 11:18 CAT scan demonstrates a right perihilar stable lesion noted by 3 x 2.4 cm. CAT scan shows no pulmonary embolism. Will admit to r/o TB. Heart Score/ECG Review #1 ECG reviewed & interpreted by me at: 11:10 05/28/18 11:14 NSR 87, no std/kane, +LVH, TWI III, normal axis, normal intervals, QTC 445 msec
[2018-05-28 11:31] LABS: VENOUS PC02 35.9 mmHg (38-52); VENOUS PH 7.44 (7.32-7.42)
[2018-05-28 11:34] LABS: BASO % 0.4 % (0-2.0); EOS % 0.5 % (0-4.5); HEMATOCRIT 40.8 % (32.4-45.2); HEMOGLOBIN 13.2 GM/dL (10.7-15.3); LYMPH % 22.8 % (8-40); MCH 27.9 pg (25.7-33.7); MCHC 32.3 g/dl (32.0-36.0); MEAN CELL VOLUME 86.3 fl (80-96); MEAN PLT VOLUME 7.9 fl (7.5-11.1); MONO % 4.5 % (3.8-10.2); NEUT % 71.8 % (42.8-82.8); PLATELET COUNT 266 K/MM3 (134-434); RBC 4.73 M/mm3 (3.60-5.2); RDW 13.3 % (11.6-15.6); WHITE BLOOD COUNT 7.3 K/mm3 (4.0-10.0)
[2018-05-28 11:46] LABS: INR 0.96 (0.83-1.09); PROTHROMBIN TIME (PATIENT) 11.3 SEC (9.7-13.0)
[2018-05-28 11:49] LABS: ACTIVATED PTT 28.3 SECONDS (25.2-36.5)
[2018-05-28 12:00] LABS: ALK PHOS 82 U/L (45-117); ANION GAP 10 MMOL/L (8-16); BILIRUBIN,TOTAL 0.5 mg/dL (0.2-1); BLOOD UREA NITROGEN 15 mg/dL (7-18); CALCIUM 8.7 mg/dL (8.5-10.1); CHLORIDE 105 mmol/L (98-107); CO2 24 mmol/L (21-32); CREATININE 0.6 mg/dL (0.55-1.3); GLUCOSE,RANDOM 141 mg/dL (74-106); N-TERMINAL BNP 144.8 pg/ml (5-125); POTASSIUM 4.1 mmol/L (3.5-5.1); SGOT/AST 18 U/L (15-37); SGPT/ALT 22 U/L (13-61); SODIUM 139 mmol/L (136-145); TOT PROT 7.6 g/dl (6.4-8.2)
[2018-05-28 12:38] LABS: URINE APPEARANCE CLEAR; URINE BILIRUBIN NEGATIVE (<2.0 mg/dL); URINE COLOR LTYELLOW; URINE GLUCOSE (UA) NEGATIVE (NEGATIVE); URINE KETONE NEGATIVE (NEGATIVE); URINE LEUK ESTERASE 1+ (NEGATIVE); URINE NITRITE NEGATIVE (NEGATIVE); URINE PROTEIN NEGATIVE (NEGATIVE); URINE UROBILINOGEN NEGATIVE mg/dL (0.2-1.0)
[2018-05-28 12:47] LABS: EPI CELLS RARE /HPF (FEW); URINE MUCUS RARE
--- NOTE | 2018-05-28 14:57 | PN ---
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 Eikenella lung abscess, and latent TB Obtain f/u CT chest, Sputum AFB, repeat aspergillus serologies Pulmonary evaluation ? repeat bx Discussed with daughter at bedside
--- NOTE | 2018-05-28 15:41 | EKG ---
Test Reason : Blood Pressure : / mmHG Vent. Rate : 087 BPM Atrial Rate : 087 BPM P-R Int : 198 ms QRS Dur : 078 ms QT Int : 370 ms P-R-T Axes : 044 004 018 degrees QTc Int : 445 ms NORMAL SINUS RHYTHM MINIMAL VOLTAGE CRITERIA FOR LVH, MAY BE NORMAL VARIANT BORDERLINE ECG WHEN COMPARED WITH ECG OF 29-MAY-2014 11:34, NO SIGNIFICANT CHANGE WAS FOUND Confirmed by DANNY SNOW, WESLY ([id number]) on 05/28/2018 3:41:00 PM Referred By: Confirmed By:WESLY DELGADO MD
--- NOTE | 2018-05-28 17:06 | PN ---
Progress Note (short form) - Note Progress Note: PULMONARY CONSULTATION DICTATED 05/28/18 IMP HEMOPTYSIS LIKELY SECONDARY TO ASPERGILLOMA,BRONCHIECTASIS H/O TB S/P TREATMENT HLD DM PLAN IV ABX MEDROL O2 NEEDED QUANTIFY HEMOPTYSIS THORACIC SURGERY EVALUATION COUGH MEDS DR ROLLINS Problem List - Problems (1) Hemoptysis Code(s): R04.2 - HEMOPTYSIS (2) Diabetes Code(s): E11.9 - TYPE 2 DIABETES MELLITUS WITHOUT COMPLICATIONS (3) Pulmonary aspergilloma Code(s): B44.9 - ASPERGILLOSIS, UNSPECIFIED (4) History of TB (tuberculosis) Code(s): Z86.11 - PERSONAL HISTORY OF TUBERCULOSIS
--- NOTE | 2018-05-28 17:29 | HP ---
Admitting History and Physical - Admission Chief Complaint: cough dry throat pain pleuritic cp 3 days. with blood in sputum. pt h/o gogh on off 3yrs tx in past for asperigolosis lung History of Present Illness: pmhx kid stones htn lt cts dm gerd osteopenia History Source: Patient, Family Member Limitations to Obtaining History: No Limitations - Past Medical History Pulmonary: Yes: Other (asperigolosis lung) Rheumatology: Yes: Other (lt cts) Endocrine: Yes: Diabetes Mellitus - Smoking History Smoking history: Never smoked Have you smoked in the past 12 months: No Aproximately how many cigarettes per day: 0 - Alcohol/Substance Use Hx Alcohol Use: No Home Medications - Allergies Allergies/Adverse Reactions: Allergies Allergy/AdvReac Type Severity Reaction Status Date / Time streptomycin [Streptomycin] Allergy Intermediate Rash Verified 09/17/16 17:07 COLOGNE Allergy Uncoded 09/17/16 17:07 hair dye Allergy Uncoded 09/17/16 17:07 - Home Medications Home Medications: Ambulatory Orders Alendronate Na [Fosamax (Weekly)] 70 mg PO Q7D 09/17/16 Glipizide 2.5 mg PO DAILY 09/17/16 Metformin HCl [Metformin HCl ER] 1,000 mg PO BID 09/17/16 Aspirin 81 mg PO DAILY 05/28/18 Azithromycin 250 mg PO DAILY 05/28/18 Omeprazole 20 mg PO DAILY 05/28/18 Simvastatin 20 mg PO HS 05/28/18 Family Disease History - Family Disease History Family History: Unremarkable Review of Systems - Review of Systems Respiratory: reports: Cough, Hemoptysis Physical Examination Vital Signs: Vital Signs Temperature 97.9 F 05/28/18 15:02 Pulse Rate 80 05/28/18 15:02 Respiratory Rate 18 05/28/18 15:02 Blood Pressure 159/78 05/28/18 15:02 O2 Sat by Pulse Oximetry (%) 99 05/28/18 15:02 Constitutional: Yes: Well Nourished Eyes: Yes: WNL HENT: Yes: WNL Neck: Yes: WNL Cardiovascular: Yes: WNL Respiratory: Yes: Rhonchi Gastrointestinal: Yes: WNL, Normal Bowel Sounds, Soft ...Rectal Exam: Yes: Deferred Renal/: Yes: WNL Breast(s): Yes: WNL Musculoskeletal: Yes: WNL Extremities: Yes: WNL Edema: No Peripheral Pulses WNL: Yes Integumentary: Yes: WNL Neurological: Yes: WNL ...Motor Strength: WNL Psychiatric: Yes: WNL Labs: CBC, BMP 05/28/18 11:18 05/28/18 11:18 Assessment/Plan chest sx id pulm consulst neb tx inhalers steroids iv tx aspergilosis afb sputum cont home meds fs bid
[2018-05-28] MEDS: methylPREDNISolone NA SUCC 40 MG/1 ML VIAL IVPUSH SCH (17:55)
[2018-05-28] MEDS: CEFTRIAXONE 1 GM in DEXTROSE 5%-WATER - 50 ML IVPB SCH (18:00)
[2018-05-28] MEDS ORDERED: methylPREDNISolone NA SUCC 40 MG/1 ML VIAL ONE (18:04)
[2018-05-28] MEDS ORDERED: CEFTRIAXONE 1 GM/50 ML BAG ONE (18:04)
--- NOTE | 2018-05-28 18:43 | CONS ---
DATE OF CONSULTATION: DATE OF DICTATION: 05/28/2018 INFECTIOUS DISEASE CONSULTATION HISTORY OF PRESENT ILLNESS: The patient is a 72-year-old female evaluated for lung infection. The patient has a complicated past medical history. Her previous records were reviewed, primarily records from the office of Dr. Jorge Rogel. He was asked to evaluate the patient in infectious disease consultation on January 24, 2015, after patient was found to have an abnormal CAT scan of the chest. She was found to have an approximately 2 x 2 cm nodule adjacent to the right pulmonary artery and the hilum. She underwent a bronchoscopy by Dr. Tristian Guo, and 2 biopsies by at [facility]. The bronchoscopy was essentially unrevealing. Needle biopsy of the lung mass-like lesion was negative for malignancy and negative for AFB/fungal disease. According to Dr. Rogel's notes, the pathology was suggestive of aspergillus and actinomyces. AFB cultures and fungal cultures were ultimately negative. The routine culture and sensitivity ultimately grew an Eikenella species. The patient was placed on a course of voriconazole and amoxicillin. She completed a 3-month course from September through December of 2014. At that time, she was noted to have elevated liver enzymes, and the regimen was discontinued. She returned to the office approximately 6 months later in July of 2015 with persistent cough and night sweats. The regimen of voriconazole and amoxicillin was resumed. 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 She was seen in followup in June of 2016. At that time, decision was made to give her a course of INH for prophylaxis of a positive Quantiferon. According to the notes she completed an approximately 12-month course of therapy ending in April of 2017. Since that time she had been lost to followup in Dr. Rogel's office. The daughter reports to me that in the interim, the patient returned to [facility] where she lived for several months. She now returns with jeanette hemoptysis. According to the daughter, she has had a chronic cough which has not changed much in nature. However, over the past 24 hours she coughed up a significant amount of jeanette blood. It was associated with pleuritic type right sided chest pain. She denied any dyspnea. She has had no complaints of fevers, chills, night sweats, or weight loss. In the emergency room, an influenza swab was performed and was negative. A followup CAT scan was performed, and the official report is pending. At the present time she is awake and alert. She is in no acute respiratory distress. Her breathing is nonlabored on nasal cannula O2. PAST MEDICAL HISTORY: Positive for diabetes mellitus, hyperlipidemia, hypertension, nephrolithiasis. PAST SURGICAL HISTORY: Status post section. ALLERGIES: STREPTOMYCIN. SOCIAL HISTORY: She lives at home with family members. She is a nonsmoker, nondrinker. SYSTEMS REVIEW: Neurologic: No loss of consciousness, seizure activity, focal weakness. Cardiac: As per HPI. Respiratory: As per HPI. Gastrointestinal: Negative vomiting or diarrhea. Genitourinary: Negative for urinary tract infection. LABORATORY DATA: White count 7.3, hematocrit 40.8, platelet count 266, creatinine 0.6. Urinalysis 1 white cell. Cultures are pending. Previous serologies, Quantiferon gold positive, galactomannan negative, Fungitell 58 (normal less than 60), AFB cultures, fungal cultures negative. PHYSICAL EXAMINATION: General: On exam, she is awake, she is in no acute distress. Vital signs: Temperature 98.2, blood pressure 115/85, pulse 90 regular, respirations 18 per minute. HEENT: Sclerae anicteric. Cardiovascular: Heart sounds S1, S2. Lungs: Crepitations at the bases bilaterally. Coarse rhonchi present in the right upper and mid lung burden. Abdomen: Soft, no tenderness elicited. No mass, rebound, or rigidity. Extremities: Negative for edema. 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 Also previously treated with INH for 1 year for latent tuberculosis without evidence of active tuberculosis. Obtain followup CAT scan of the chest. Obtain sputum AFB smear and culture. Repeat aspergillus serologies. Pulmonary evaluation. Will observe off the antibiotics at the present time. Case discussed with patient and daughter present at the time of the examination. Thank you for the kind referral. KODAK ARNOLD M.D. [id number]
[2018-05-28 20:16] VITALS: BMI 28.8
[2018-05-28] MEDS: ACETAMINOPHEN 325 MG TABLET (FP) PO PRN (20:23)
--- NOTE | 2018-05-28 20:31 | PN ---
Progress Note (short form) - Note Progress Note: Thoracic Surgery: Full consult to follow. Would recommend bronchoscopy to confirm origin of hemoptysis and possible prophylactic embolization. She should be observed in ICU if any continued hemoptysis.
[2018-05-28] MEDS: WATER IVPB SCH (21:42)
[2018-05-28] MEDS: NYSTATIN 500,000 UNITS/5 ML SUSPENSION PO SCH (21:42)
[2018-05-28] MEDS: DEXTROSE 5% IVPB SCH (21:42)
[2018-05-28] MEDS: VORICONAZOLE IVPB SCH (21:42)
[2018-05-28] MEDS ORDERED: VORICONAZOLE 200 MG/20 ML VIAL (RESTRICTED TO ID) IVPB SCH (22:00)
[2018-05-29] MEDS: ACETAMINOPHEN 325 MG TABLET (FP) PO PRN (01:34)
[2018-05-29] MEDS: methylPREDNISolone NA SUCC 40 MG/1 ML VIAL IVPUSH SCH ×3 (02:25→17:22)
[2018-05-29] MEDS: metFORMIN HCL 500 MG TABLET (FP) PO SCH ×2 (06:11→17:22)
[2018-05-29] MEDS ORDERED: PT OWN MED DRAWER 7, Y5N ONE ×2 (06:45→09:19)
[2018-05-29] MEDS ORDERED: glyBURIDE 2.5 MG TABLET (FP) PO SCH (07:00)
[2018-05-29 07:11] LABS: BASO % 0.1 % (0-2.0); HEMATOCRIT 39.6 % (32.4-45.2); HEMOGLOBIN 13.8 GM/dL (10.7-15.3); LYMPH % 14.2 % (8-40); MCH 29.7 pg (25.7-33.7); MCHC 34.7 g/dl (32.0-36.0); MEAN CELL VOLUME 85.5 fl (80-96); MEAN PLT VOLUME 8.1 fl (7.5-11.1); MONO % 0.4 % (3.8-10.2); NEUT % 85.3 % (42.8-82.8); PLATELET COUNT 278 K/MM3 (134-434); RBC 4.64 M/mm3 (3.60-5.2); RDW 13.3 % (11.6-15.6); WHITE BLOOD COUNT 5.9 K/mm3 (4.0-10.0)
[2018-05-29 07:42] LABS: ALK PHOS 79 U/L (45-117); ANION GAP 7 MMOL/L (8-16); BILIRUBIN,TOTAL 0.6 mg/dL (0.2-1); BLOOD UREA NITROGEN 17 mg/dL (7-18); CALCIUM 8.7 mg/dL (8.5-10.1); CHLORIDE 104 mmol/L (98-107); CO2 26 mmol/L (21-32); CREATININE 0.7 mg/dL (0.55-1.3); POTASSIUM 4.2 mmol/L (3.5-5.1); SGOT/AST 14 U/L (15-37); SGPT/ALT 20 U/L (13-61); SODIUM 137 mmol/L (136-145); TOT PROT 7.6 g/dl (6.4-8.2)
[2018-05-29 07:58] LABS: ALBUMIN 3.9 g/dl (3.4-5.0); GLUCOSE,RANDOM 284 mg/dL (74-106)
[2018-05-29] MEDS ORDERED: cefTRIAXone SODIUM 1 GM VIAL ONE (09:19)
[2018-05-29] MEDS ORDERED: DEXTROSE 5%-WATER - 50 ML IVPB ONE (09:20)
[2018-05-29] MEDS: CEFTRIAXONE 1 GM in DEXTROSE 5%-WATER - 50 ML IVPB SCH (09:29)
[2018-05-29] MEDS: NYSTATIN 500,000 UNITS/5 ML SUSPENSION PO SCH ×2 (09:30→22:43)
[2018-05-29] MEDS ORDERED: metoPROLOL SUCCINATE 25 MG TAB.SR.24H (FP) PO SCH (10:00)
[2018-05-29] MEDS ORDERED: PANTOPRAZOLE 40 MG TABLET (FP) PO SCH (10:00)
[2018-05-29] MEDS ORDERED: ASPIRIN COATED 81 MG TABLET.EC PO SCH (10:00)
[2018-05-29] MEDS: VORICONAZOLE IVPB SCH (10:35)
[2018-05-29] MEDS: WATER IVPB SCH (10:35)
[2018-05-29] MEDS: DEXTROSE 5% IVPB SCH (10:35)
[2018-05-29] MEDS ORDERED: ACETAMINOPHEN 325 MG TABLET (FP) PO PRN (10:49)
--- NOTE | 2018-05-29 10:49 | PN ---
Progress Note, Physician Chief Complaint: c/o ruq pain headache ? constipaTION - Current Medication List Current Medications: Active Medications Acetaminophen (Tylenol -) 650 mg PO Q4H PRN PRN Reason: PAIN LEVEL 1 - 3 Last Admin: 05/29/18 01:34 Dose: 650 mg Aspirin (Ecotrin -) 81 mg PO DAILY [facility] Last Admin: 05/29/18 09:29 Dose: 81 mg Glyburide (Diabeta -) 2.5 mg PO DAILY@0700 [facility] Last Admin: 05/29/18 06:11 Dose: 2.5 mg Voriconazole 415 mg/ Dextrose 291.5 mls @ 145.75 mls/hr IVPB BID [facility] Stop: 05/29/18 11:59 Last Admin: 05/29/18 10:35 Dose: 145.75 mls/hr Ceftriaxone Sodium 1 gm/ (Dextrose) 50 mls @ 100 mls/hr IVPB DAILY [facility]; Protocol Last Admin: 05/29/18 09:29 Dose: 100 mls/hr Metformin HCl (Glucophage -) 1,000 mg PO BID@0700,1630 [facility] Last Admin: 05/29/18 06:11 Dose: 1,000 mg Methylprednisolone Sodium Succinate (Solu-Medrol -) 40 mg IVPUSH Q8H-IV [facility] Last Admin: 05/29/18 09:29 Dose: 40 mg Metoprolol Succinate (Toprol Xl -) 25 mg PO DAILY [facility] Last Admin: 05/29/18 09:29 Dose: 25 mg Nystatin (Nystatin Oral Suspension -) 100,000 units PO BID [facility] Last Admin: 05/29/18 09:30 Dose: 100,000 units Pantoprazole Sodium (Protonix -) 40 mg PO DAILY [facility] Last Admin: 05/29/18 09:29 Dose: 40 mg - Objective Vital Signs: Vital Signs Temperature 97.8 F 05/29/18 06:49 Pulse Rate 75 05/29/18 06:49 Respiratory Rate 20 05/29/18 06:49 Blood Pressure 142/75 05/29/18 06:49 O2 Sat by Pulse Oximetry (%) 96 05/28/18 20:07 Constitutional: Yes: Calm Eyes: Yes: WNL HENT: Yes: WNL Neck: Yes: WNL Cardiovascular: Yes: WNL Respiratory: Yes: Other (COUGH) Gastrointestinal: Yes: Other (RUQ PAIN) ...Rectal Exam: Yes: Deferred Genitourinary: Yes: WNL Breast(s): Yes: WNL Extremities: Yes: WNL Edema: No Integumentary: Yes: WNL Neurological: Yes: WNL ...Motor Strength: WNL Labs: CBC, BMP 05/29/18 06:15 05/29/18 06:15 INR, PTT INR 0.96 (0.83-1.09) 05/28/18 11:18 Assessment/Plan TYLENOL MIRALAX PO SONO ABD BG AFP QUETOFERON CONT TX IS AGREE W BRONCHOSCOPY
[2018-05-29] MEDS ORDERED: POLYETHYLENE GLYCOL 3350 255 GM BTL PO ONE (11:30)
--- NOTE | 2018-05-29 11:58 | CONS ---
DATE OF CONSULTATION: 05/28/2018 PULMONARY CONSULTATION REFERRING PHYSICIAN: Kevin Toro M.D. HISTORY OF PRESENT ILLNESS: The patient is a 72-year-old white female known to me in previous office visit, past medical history of noninsulin dependent diabetes mellitus, right upper lobe aspergilloma, hyperlipidemia, osteoporosis, history of TB treatment for 9 months 3 years ago, presented to [facility] with complaint of hemoptysis. Patient apparently woke up this morning around 8 o'clock, coughed up a handful of bright red blood associated with sore throat. Denied any fevers or chills, nausea, vomiting, diaphoresis. She also apparently complained of some intermittent pleuritic chest pain when she was coughing up the blood. She presented to the emergency room with the above. In the ER, she underwent CTA to the chest with no evidence of PE but showed persistent right upper lobe aspergilloma. Patient denies any fever, chills, nausea, vomiting, diaphoresis. Denies any chills. Of note is patient recently traveled to [facility] and returned in February 2018. As stated before, she has history of TB, and a positive Quantiferon, was treated by Dr. Rogel for 9 months. She denies any weight loss or night sweats. Apparently she was treated with voriconazole years ago by Dr. Rogel for aspergilla in the bronchial washings. PAST MEDICAL HISTORY: Again, includes noninsulin dependent diabetes mellitus, right upper lobe aspergilloma, hypertension, hyperlipidemia, osteoporosis. REVIEW OF SYSTEMS: Positive hemoptysis. Positive mild chest pain. No fever. No chills. Positive sore throat. No abdominal pain. No weight loss or night sweats. MEDICATION: Medications prior to admission include Fosamax, glipizide, metformin, aspirin, Zithromax, omeprazole, and simvastatin. SOCIAL HISTORY: Born in [facility]. Works as a [employer] until 19 years ago. No ETOH. No tobacco use. PHYSICAL EXAMINATION: GENERAL: The patient is an elderly white female, awake, alert, in no acute distress. She is afebrile. VITAL SIGNS: Blood pressure 159/78, respiratory rate 18, O2 saturation 99% on room air. HEENT: Normocephalic, atraumatic. NECK: Supple. HEART: Regular S1, S2. CHEST: Clear. ABDOMEN: Soft, bowel sounds positive. EXTREMITIES: No cyanosis, edema. LABORATORY: WBC 7.3, hemoglobin 13.2, hematocrit 40.8, platelet count 266,000. Venous blood gas: 7.44, pCO2 of 35, pO2 of 100, INR is 0.96. BUN 15, creatinine 0.6. BNP is 144. Chest CT: No change in size in the right upper lobe aspergilloma with bronchiectatic change in the right upper lobe. IMPRESSION: 1. Hemoptysis secondary to aspergilloma as well as bronchiectasis. 2. History of tuberculosis status post treatment. 3. Diabetes mellitus. 4. Osteoporosis. 5. Hyperlipidemia. PLAN: Antibiotics. Supplemental O2 as needed. Short course of steroids. Antitussives. Thoracic surgical consultation. Quantify hemoptysis. MARGARITA ROLLINS M.D. [id number]
--- NOTE | 2018-05-29 13:56 | PN ---
Progress Note (short form) - Note Progress Note: PULMONARY Still with hemoptysis. No fevers recorded. Vital Signs Period Temp Pulse Resp BP Sys/Mueller Pulse Ox Last 24 Hr 97.8 F-98.0 F 18-87 18-20 139-159/65-78 96-99 Gen: NAD at rest Heart: RRR Lung: decreased breath sounds at the bases Abd: soft, nontender Ext: no edema CBC, BMP 05/29/18 06:15 05/29/18 06:15 Active Medications Acetaminophen (Tylenol -) 650 mg PO Q4H PRN PRN Reason: PAIN LEVEL 1 - 3 Last Admin: 05/29/18 01:34 Dose: 650 mg Acetaminophen (Tylenol -) 650 mg PO Q4H PRN PRN Reason: HEADACHE Aspirin (Ecotrin -) 81 mg PO DAILY [facility] Last Admin: 05/29/18 09:29 Dose: 81 mg Glyburide (Diabeta -) 2.5 mg PO DAILY@0700 [facility] Last Admin: 05/29/18 06:11 Dose: 2.5 mg Ceftriaxone Sodium 1 gm/ (Dextrose) 50 mls @ 100 mls/hr IVPB DAILY [facility]; Protocol Last Admin: 05/29/18 09:29 Dose: 100 mls/hr Metformin HCl (Glucophage -) 1,000 mg PO BID@0700,1630 [facility] Last Admin: 05/29/18 06:11 Dose: 1,000 mg Methylprednisolone Sodium Succinate (Solu-Medrol -) 40 mg IVPUSH Q8H-IV [facility] Last Admin: 05/29/18 09:29 Dose: 40 mg Metoprolol Succinate (Toprol Xl -) 25 mg PO DAILY [facility] Last Admin: 05/29/18 09:29 Dose: 25 mg Nystatin (Nystatin Oral Suspension -) 100,000 units PO BID [facility] Last Admin: 05/29/18 09:30 Dose: 100,000 units Pantoprazole Sodium (Protonix -) 40 mg PO DAILY [facility] Last Admin: 05/29/18 09:29 Dose: 40 mg A/P Hemoptysis Aspergilloma Bronchiectasis h/o TB DM Hyperlipidemia - continue medrol - cough suppressants - continue antibiotics - inspection bronchoscopy likely would not reveal additional information - recommend evaluation for lobectomy as the aspergilloma has gotten progressively worse since initial bronchoscopy 2014 - DVT prophylaxis
[2018-05-29] MEDS ORDERED: POLYETHYLENE GLYCOL 3350 119 GM BTL PO PRN (14:21)
[2018-05-29 17:09] VITALS: BP 144/77; PULSE 79; TEMP 97.9
--- NOTE | 2018-05-29 17:47 | PN ---
Progress Note (short form) - Note Progress Note: Thoracic Surgery: I have seen and examined this patient. She has had two episodes of hemoptysis that may have been severe. She is currently stable. I recommend transfer to [place] for further workup as she should undergo prophylactic embolization and possibly a high risk surgery.
[2018-06-01 16:28] LABS: ASPERGIL AG 0.03 Index (0.00-0.49)
== END 2018-05-29 23:55 | disposition short-term general hospital (02) | DRG 204 ==
LOC: JER 09:44 → JERBED 14:57 → J8W 19:32
PROVIDERS: ADMIT Family Medicine; ATTEND Family Medicine
DX: R04.2 Hemoptysis (principal); B44.9 Aspergillosis, unspecified; J47.9 Bronchiectasis, uncomplicated; K21.9 Gastro-esophageal reflux disease without esophagitis; M85.80 Other specified disorders of bone density and structure, unspecified site; Z87.442 Personal history of urinary calculi; Z86.11 Personal history of tuberculosis
CPT/HCPCS: 36415; 71045-TC-FY; 71275-TC; 80053; 81003; 81015; 82803; 82962; 83605; 83880; 84484; 85025; 85610; 85730; 86480; 86850; 86900; 86901; 87040; 87070; 87086; 87116; 87205; 87206; 87305; 87449; 87804; 87880; 93005; 93010; 99283-25

== ENCOUNTER 2018-06-22 15:32 | Inpatient (IN) | payer OTHER ==
--- NOTE | 2018-06-22 15:50 | PDOC ---
Attending Attestation - Resident Resident Name: Enrrique Resendiz - HPI HPI: 06/22/18 17:57 72-year-old female presents with fever status post right lobectomy 3 weeks ago with fungal positive cultures. - Physicial Exam PE: 06/22/18 17:57 GENERAL: Awake, in no acute distress HEAD: No signs of trauma EYES: PERRLA, EOMI, sclera anicteric, conjunctiva clear, visual acuity grossly intact ENT: Auricles normal inspection, hearing grossly normal, nares patent, oropharynx clear without exudates. Moist mucosa NECK: Normal ROM, supple, no lymphadenopathy, JVD, or masses LUNGS: Breath sounds equal, clear to auscultation bilaterally. No wheezes, and no crackles. Normal work of breathing. HEART: Regular rate and rhythm, normal S1 and S2, no murmurs, rubs or gallops ABDOMEN: Soft, nontender, normoactive bowel sounds. No guarding, no rebound. No masses. Non-distended. CHEST WALL: Well healing right posterior surgical scar, no erythema BACK: No midline tenderness. EXTREMITIES: Normal range of motion, no edema. No clubbing or cyanosis. No erythema, or tenderness NEUROLOGICAL: Alert, and fully oriented x4, Cranial nerves II through XII grossly intact. Normal speech, SKIN: Warm, Dry, normal turgor, no rashes or lesions noted. - Critical Care Time Total Critical Care Time: 35 Critical Care Statement: The care of this patient involved high complexity decision making to prevent further life threatening deterioration of the patient 's condition and/or to evaluate & treat vital organ system(s) failure or risk of failure. - Medical Decision Making 06/22/18 16:41 Test Call received from thoracic surgery Dr. Law AKBAR who knows the patient well, he is requesting a plain CT of the chest to rule out new infectious pathology Patient is status post recent lobectomy 3 weeks ago with positive fungal cultures 06/22/18 18:11 Labs drawn and pending Case signed out to oncoming physician for final disposition Plan at this time is for admission to medical service Patient seen at the bedside by thoracic surgery who does not recommend surgical or invasive intervention at this time Antifungal's to be started Impression fever
--- NOTE | 2018-06-22 16:40 | PDOC ---
History of Present Illness - General Chief Complaint: SIRS, Suspected/Possible Stated Complaint: FEVER Time Seen by Provider: 06/22/18 15:44 History Source: Patient, Family Exam Limitations: Language Barrier - History of Present Illness Initial Comments: 06/22/18 16:27 Pt. is a 72 y.o. Sinhala only speaking F w/ PMHx. of NIDDM, HLD, and recent Aspergilliosis (s/p embolization and RLL lobectomy) presents to the ED with fever, chills and productive cough. for 3 days. Per family's meticulous records over the last few days Pt. had temperatures to 101 with Glucose of 437 today whereupon the family contacted Dr. Cody and Dr. Toro who recommended the Pt. to take 400mg of Motrin and 2.5mg of Glipizide. Rpt. Temp was 104.7 and Glucose was 240. Family was then advised to bring patient to the ED. Pt. endorses a light brown production with cough, chills, dizziness, decreased appetite and diaphoresis. Pt. states nan tshe has vomited but because of coughing not because of nausea. Pt. denies any changes in bowel or urinary habits at this time. Per family they said after the lobectomy in 06/08/19, Pt. was supposed to be started on Voriconazole, however per ID at [facility] she never started because "they removed the lobe that was infected." Pt. states that she checks her sugars once a day and that it ranges from 120s- 300s. Dr. Cody called and ordered a non-contrast chest CT. 06/22/18 16:41 CBC, CMP, Mag, PT/INR, UA, Lactate, and Blood Cx. ordered to evaluate for sepsis. 06/22/18 18:[address] Cody and Dr. Toro, agreed to start Voriconazole and broad spectrum abx. LA came came back at 1.6 therefore will hold off on Vancomycin as Pt. is receiving 2 nephrotoxic Abx. at this time, will await ID consult input and chemistry results (First lab set hemolyzed). Timing/Duration: 1 week Severity: mild Modifying Factors: improves with: rest Associated Symptoms: reports: cough, diaphoresis, fever/chills, loss of appetite , nausea/vomiting (vomiting, no nausea ) Aspirin Received prior to arrival: Yes: 81 mg x 1 Beta Eileen Taken at Home(Core Measure): Yes Past History - Travel Traveled outside of the country in the last 30 days: No Close contact w/someone who was outside of country & ill: No - Past Medical History Allergies/Adverse Reactions: Allergies Allergy/AdvReac Type Severity Reaction Status Date / Time streptomycin [Streptomycin] Allergy Intermediate Rash Verified 06/22/18 15:39 COLOGNE Allergy Uncoded 06/22/18 15:39 hair dye Allergy Uncoded 06/22/18 15:39 Home Medications: Ambulatory Orders Alendronate Na [Fosamax (Weekly)] 70 mg PO Q7D 09/17/16 Glipizide 2.5 mg PO DAILY 09/17/16 metFORMIN HCL [Metformin ER Osmotic] 1,000 mg PO BID 09/17/16 Aspirin 81 mg PO DAILY 05/28/18 Azithromycin 250 mg PO DAILY 05/28/18 Omeprazole 20 mg PO DAILY 05/28/18 Simvastatin 20 mg PO HS 05/28/18 Anemia: No Asthma: No Cancer: No Cardiac Disorders: No CVA: No COPD: No CHF: No Dementia: No Diabetes: Yes (neuropathy) GI Disorders: Yes (uti) Disorders: Yes (KIDNEY STONES) HTN: Yes Hypercholesterolemia: Yes Kidney Stones: Yes Liver Disease: No Seizures: No Thyroid Disease: No - Surgical History Abdominal Surgery: No Appendectomy: No Cardiac Surgery: No Cholecystectomy: No Lung Surgery: No Neurologic Surgery: No Orthopedic Surgery: Yes (KNEE SX, HAND SX,left shoulder arthroscopy.) - Immunization History Immunization Up to Date: Yes - Suicide/Smoking/Psychosocial Hx Smoking History: Never smoked Have you smoked in the past 12 months: No Number of Cigarettes Smoked Daily: 0 Information on smoking cessation initiated: No Hx Alcohol Use: No Drug/Substance Use Hx: No Substance Use Type: None Review of Systems - Review of Systems Able to Perform ROS?: Yes Is the patient limited Burundian proficient: Yes Constitutional: Yes: Symptoms Reported, Chills, Diaphoresis, Fever, Loss of Appetite, Night Sweats HEENTM: No: Difficulty Swallowing *Physical Exam - Vital Signs Last Vital Signs Temp Pulse Resp BP Pulse Ox 102.5 F H 99 H 18 139/64 97 06/22/18 15:40 06/22/18 15:40 06/22/18 15:40 06/22/18 15:40 06/22/18 15:40 - Physical Exam HEENT: positive: MADISYN, Normal ENT Inspection, Normal Voice, Symmetrical, Pharynx Normal. negative: Pharyngeal Erythema, Tonsillar Exudate, Tonsillar Erythema, Sinus Tenderness Respiratory/Chest: positive: Decreased Breath Sounds, Crackles. negative: Accessory Muscle Use, Labored Respiration, Rapid RR, Wheezing Cardiovascular: positive: Regular Rhythm, Regular Rate, S1, S2. negative: Edema , JVD Repeat PE for Septic Shock - Vital Signs Vital Signs: Vital Signs Temperature 102.5 F H 06/22/18 15:40 Pulse Rate 99 H 06/22/18 15:40 Respiratory Rate 18 06/22/18 15:40 Blood Pressure 139/64 06/22/18 15:40 O2 Sat by Pulse Oximetry (%) 97 06/22/18 15:40 I have reviewed the most recent vital signs: Yes - PE CV for Spetic Shock: Regular Rhythm, Regular Rate, S1, S2 Lungs: Crackles Vascular: Left Radial: 2+ Capillary Refill: <3 seconds Skin exam: Warm, Moist/diaphoretic - Impression Impression: No fluid bolus indicated, pt not hypovolemic Moderate Sedation - Procedure Monitoring Vital Signs: Procedure Monitoring Vital Signs Temperature 102.5 F H 06/22/18 15:40 Pulse Rate 99 H 06/22/18 15:40 Respiratory Rate 18 06/22/18 15:40 Blood Pressure 139/64 06/22/18 15:40 O2 Sat by Pulse Oximetry (%) 97 06/22/18 15:40 ED Treatment Course - LABORATORY CBC & Chemistry Diagram: 06/22/18 16:45 06/22/18 17:52 *DC/Admit/Observation/Transfer Diagnosis at time of Disposition: Sepsis - Discharge Dispostion Decision to Admit order: Yes - Referrals Referrals: Kevin Toro MD [Staff Physician] - - Patient Instructions Printed Discharge Instructions: DI for Fever (Symptom) -- Adult, DI for Sepsis -- Adult - Post Discharge Activity
[2018-06-22 17:35] LABS: BASO % 0.5 % (0-2.0); EOS % 1.1 % (0-4.5); HEMATOCRIT 31.6 % (32.4-45.2); HEMOGLOBIN 10.8 GM/dL (10.7-15.3); LYMPH % 7.8 % (8-40); MCH 28.1 pg (25.7-33.7); MCHC 34.2 g/dl (32.0-36.0); MEAN CELL VOLUME 82.1 fl (80-96); MEAN PLT VOLUME 7.7 fl (7.5-11.1); MONO % 7.5 % (3.8-10.2); NEUT % 83.1 % (42.8-82.8); PLATELET COUNT 458 K/MM3 (134-434); RBC 3.85 M/mm3 (3.60-5.2); RDW 14.2 % (11.6-15.6); WHITE BLOOD COUNT 14.8 K/mm3 (4.0-10.0)
[2018-06-22 17:48] LABS: INR 1.33 (0.83-1.09); PROTHROMBIN TIME (PATIENT) 15.7 SEC (9.7-13.0)
--- NOTE | 2018-06-22 18:03 | CONSULT ---
Consult Consult Specialty:: Thoracic Surgery Referred by:: Dr. Toro Reason for Consultation:: post-surgical fever - History of Present Illness Chief Complaint: fever History of Present Illness: 72F with DM and h/o aspergilloma of RUL but was complex cavitary lesion that also grew polymicrobes in distant past. 3 weeks ago underwent right thoracotomy and upper lobectomy with intercostal flap to bronchial stump. Cultures did not grow from lobe but microscopy showed actinomyces and aspergillus. Doing well until 2 days ago. Increased cough. Now high fever. Also some emesis. - History Source History Provided By: Patient, Medical Record Limitations to Obtaining History: No Limitations - Past Medical History Pulmonary: Yes: Other (asperigolosis lung) Rheumatology: Yes: Other (lt cts) Endocrine: Yes: Diabetes Mellitus - Alcohol/Substance Use Hx Alcohol Use: No - Smoking History Smoking history: Never smoked Have you smoked in the past 12 months: No Aproximately how many cigarettes per day: 0 Home Medications - Allergies Allergies/Adverse Reactions: Allergies Allergy/AdvReac Type Severity Reaction Status Date / Time streptomycin [Streptomycin] Allergy Intermediate Rash Verified 06/22/18 15:39 COLOGNE Allergy Uncoded 06/22/18 15:39 hair dye Allergy Uncoded 06/22/18 15:39 - Home Medications Home Medications: Ambulatory Orders Alendronate Na [Fosamax (Weekly)] 70 mg PO Q7D 09/17/16 Glipizide 2.5 mg PO DAILY 09/17/16 Metformin HCl [Metformin HCl ER] 1,000 mg PO BID 09/17/16 Aspirin 81 mg PO DAILY 05/28/18 Azithromycin 250 mg PO DAILY 05/28/18 Omeprazole 20 mg PO DAILY 05/28/18 Simvastatin 20 mg PO HS 05/28/18 Review of Systems - Review of Systems Constitutional: reports: Fever Respiratory: reports: Cough Genitourinary: reports: Frequency Physical Exam Vital Signs: Vital Signs Temperature 102.5 F H 06/22/18 15:40 Pulse Rate 99 H 06/22/18 15:40 Respiratory Rate 18 06/22/18 15:40 Blood Pressure 139/64 06/22/18 15:40 O2 Sat by Pulse Oximetry (%) 97 06/22/18 15:40 Constitutional: Yes: Well Nourished Cardiovascular: Yes: Regular Rate and Rhythm, Tachycardia Respiratory: Yes: Regular, Other (incisions well healed) Labs: CBC, BMP 06/22/18 16:45 06/22/18 17:00 Imaging - Results Cat Scan: Image Reviewed (no obvious BPF, some bubbles near intercostal flap and anterior near RML) Problem List - Problems (1) Diabetes Code(s): E11.9 - TYPE 2 DIABETES MELLITUS WITHOUT COMPLICATIONS (2) Pulmonary aspergilloma Code(s): B44.9 - ASPERGILLOSIS, UNSPECIFIED Assessment/Plan s/p RULobectomy for infectious cavitary lesion, also with h/o stones: F/U broad fever w/u Please restart voriconazole and consult ID Dr. Parnell Will follow
[2018-06-22] MEDS ORDERED: ACETAMINOPHEN 1000 MG/100 ML VIAL (NON FORMULARY) IVPB ONE (18:10)
[2018-06-22] MEDS ORDERED: SODIUM CHLORIDE 1,000 ML IV STA (18:11)
[2018-06-22] MEDS ORDERED: ACETAMINOPHEN INJECTION 100 ML IVPB ONE (18:13)
[2018-06-22] MEDS ORDERED: PIPERACILLIN/TAZOB 3.375 GM 3.375 GM in DEXTROSE 5%-WATER - 50 ML IVPB ONE (18:20)
[2018-06-22 18:38] LABS: VENOUS PC02 36.8 mmHg (38-52); VENOUS PH 7.46 (7.32-7.42)
[2018-06-22 19:06] LABS: ALBUMIN 2.5 g/dl (3.4-5.0); ALK PHOS 211 U/L (45-117); ANION GAP 11 MMOL/L (8-16); BILIRUBIN,TOTAL 0.4 mg/dL (0.2-1); BLOOD UREA NITROGEN 12 mg/dL (7-18); CALCIUM 8.5 mg/dL (8.5-10.1); CHLORIDE 100 mmol/L (98-107); CO2 27 mmol/L (21-32); CREATININE 0.5 mg/dL (0.55-1.3); GLUCOSE,RANDOM 205 mg/dL (74-106); POTASSIUM 3.2 mmol/L (3.5-5.1); SGOT/AST 158 U/L (15-37); SGPT/ALT 122 U/L (13-61); SODIUM 137 mmol/L (136-145); TOT PROT 6.9 g/dl (6.4-8.2)
[2018-06-22] MEDS ORDERED: PIPERACILLIN/TAZOB 3.375 GM 3.375 GM/50 ML BAG IVPB ONE (19:06)
[2018-06-22 19:24] LABS: PLATELET ESTIMATE ADEQUATE
--- NOTE | 2018-06-22 19:42 | PN ---
Progress Note (short form) - Note Progress Note: Thoracic Surgery Addendum: These are the results from cultures from RULobectomy specimen:MAC grew, peptostreptococcus (beta-lactamase negative) grew, on specimen pathology visualized aspergillus and actinomyces. 06/15/2018 12:21 PM - Interface, Lab Results Component Results w Component w Lab w AFB CULTURE, TISSUE w SCC w ACID FAST BACILLI SEEN ON SMEAR FROM CULTURE. w AFB SMEAR w SCC w No Acid Fast Bacilli Seen w AFB CULTURE, TISSUE (Abnormal) w SCC w Mycobacterium avium complex Identification performed by MALDI-TOF MS. Method is research use only and has been validated in-house for clinical testing. 06/08/2018 3:30 PM - Interface, Lab Results Component Results w Component w Lab w CULTURE TISSUE w SCC w NO Growth w GRAM STAIN w SCC w Many PMN's Rare gram positive cocci in pairs w ANAEROBIC CULTURE (Abnormal) w SCC w ANAEROBIC CULTURE (Abnormal) w SCC w Peptostreptococcus micros moderate growth Identification performed by MALDI-TOF MS. Method is research use only and has been validated in-house for clinical testing. BETA LACTAMASE NEGATIVE Please contact the Microbiology laboratory if susceptibility studies are required. Please contact the Microbiology laboratory if susceptibility studies are required. Progress Notes c Expand All Collapse All General Infectious Diseases- INITIAL VISIT REASON FOR CONSULT:Lung mass s/p resection with aspergillus and actinomyces HPI:72 year-old [place]istanian woman with history of pulmonary aspergilloma (s/p voriconazole x 7 months in 2016) admitted to [facility] [place] for hemoptysis x 2 days. Underwent bronchial artery embolization on 05/30 followed by RUL resection on 06/01. Cultures with peptostroptococcus and MAC. Pathology concerning for actinomyces and aspergillus. ID consulted - recommended voriconazole and augmentin pending final pathology report. Of note, patient reports history of exposure to TB in [facility] >20 years ago. Does not report diagnosis or treatment for TB. Has never received any medications for TB. INTERIM EVENTS: Continues to have right chest pain after surgery on 06/01. Was doing better but yesterday felt weak. Increased cough over the last 3 days and had episode of vomiting after coughing fit. No fevers/chills but having drenching sweats. Has not been on voriconazole since hospital discharge (unable to obtain 2/2 insurance issues). Remains on augmentin. ROS: - Fever + Chills + Sweats + Anorexia Headache - Rash + SOB Congestion Sore throat + Cough: Dry cough or + Productive cough Nausea + Vomiting - Diarrhea - PO intake + Pain - Constipation Dysuria Frequency / urgency + Complete ROS performed and negative, except as noted above in HPI. UTO ROS due to AMS/sedation. HISTORY: Past Medical History: Diagnosis Date Diabetes mellitus Hypercholesterolemia Obesity Osteoporosis Past Surgical History: Procedure Laterality Date HX LUNG REMOVAL, PARTIAL Right 06/01/2018 No family history on file. Social History Social History Marital status: Spouse name: N/A Number of children: N/A Years of education: N/A Social History Main Topics Smoking status: Never Smoker Smokeless tobacco: None Alcohol use None Drug use: Unknown Sexual activity: Not Asked Other Topics Concern None Social History Narrative None ALLERGIES: Allergies Allergen Reactions Streptomycin Unknown PCP: No primary care provider on file. PREVIOUS MEDICATIONS: Antibiotics Aminopenicillin Antibiotic - Beta-lactamase Inhibitor Combinations Disp Start End amoxiCILLIN-clavulanate (AUGMENTIN) 875-125 mg tablet 42 tablet 06/07/2018 06/28/2018 Sig - Route:Take 1 tablet by mouth every 12 hours scheduled for 21 days. - oral Class:E-Prescribing Antifungal - Triazoles Disp Start End voriconazole (VFEND) 200 mg tablet 42 tablet 06/07/2018 06/28/2018 Sig - Route:Take 1 tablet by mouth every 12 hours for 21 days. - oral Class:E-Prescribing PHYSICAL EXAM: Vital Sign Min/Max (last 24 hours) Value Min Max Temp 96.8 F (36 C) 96.8 F (36 C) Pulse 96 96 BP: Systolic 137 137 BP: Diastolic 76 76 SpO2 95 % 95 % GEN: Chronically ill appearing; walking with walker HEENT: Anicteric, EOMI, MMM PULM: Absent BS on right upper lung field; otherwise clear breath sounds throughout CARD: Tachycardic,no m/r/g ABD: +BS, soft, nontender, nondistended EXT: No edema, warm/well perfused, no phlebitis SKIN: No rash, no skin breakdown NEURO: AAOx3, nml mood/affect, no focal deficits BACK: right back incision - c/d/i but with tenderness to minimal palpation at ribs PERTINENT LABS: Recent Labs Labs (Last 3 Months) 06/02/18 0733 06/03/18 0612 06/04/18 0318 06/05/18 0224 06/05/18 2148 WBC 13.3* 18.8* 19.4* 14.0* 14.8* NEUT 87.9* 87.9* 87.8* 78.2* 74.5 HGB 12.0 10.7* 10.6* 9.6* 10.3* PLTS 258 219 241 242 302 Recent Labs Labs (Last 3 Months) 06/02/18 0713 06/03/18 0454 06/04/18 0247 06/04/18 0317 06/05/18 0225 06/05/18 2148 CREAT 0.48* 0.45* 0.40* -- 0.43* 0.50 NA 137 136 134* -- 137 137 K 4.5 4.4 4.3 4.20 3.8 4.5 CA 8.7 8.7 8.6 -- 8.1* 8.7 BUN 13 11 11 -- 12 16 Estimated Creatinine Clearance: 46 mL/min (based on SCr of 0.5 mg/dL). Recent Labs Labs (Last 3 Months) 05/30/18 0434 05/31/18 0221 06/01/18 0137 06/02/18 0142 06/04/188 TBIL -- 0.8 -- -- -- DBIL -- 0.2 -- -- -- SGPTALT -- 13 -- -- -- SGOTAST -- 14 -- -- -- ALKPHOS -- 58 -- -- -- INR 1.1 -- 1.0 1.1 1.0 QG: Negative Galactomannan: Negative PERTINENT CULTURE RESULTS: Tissue Cx ([facility] Lung - 06/01): - Peptostreptococcus micros AFB Cx ([facility] Lung - 06/01): - MAC PERTINENT PATHOLOGY: Tissue Cx ([facility] Lung - 06/01): DIAGNOSIS: A. Lung, RUL, lobectomy- - Chronically inflamed, dilated airways filled with fungal hyphae consistent with aspergillus and filamentous bacteria consistent with Actinomyces. See note. Note - The organisms are highlighted by GMS staining and are primarily confined to airway lumens. There is some extension into alveolar spaces adjacent to airways, some of which is associated with acute pneumonia. No necrosis or angioinvasion is seen. The background lung shows emphysema and anthracotic pigment deposition. Tissue Cx (RUL - August 2015): MICROSCOPIC FINDINGS: Acute inflammation. Necrotic background material. ADDENDUM 1: Special stains were performed. GMS: Positive for fungal organisms morphologically consistent with Aspergillus spp. Positive for filamentous organisms morphologically consistent with Actinomyces spp. Negative for Pneumocystis jiroveci. AFB: Negative for acid fast bacilli and Nocardia. PERTINENT IMAGING/TESTING: Results for orders placed or performed in visit on 06/20/18 (from the past 36 hour(s)) X-RAY CHEST PA AND LATERAL ONLY Collection Time: 06/20/18 11:11 AM Narrative Chest X-Rays. Technique: PA and lateral views of the chest are submitted. Clinical information: Aspergillosis, history of pneumothorax. Comparison: Chest x-ray dated 06/07/18. The heart is normal in size. The lungs are clear with no focal infiltrate. There is mild pleural thickening versus small pleural effusion laterally at the right lung base, unchanged. There are right-sided rib fractures. There are degenerative changes in the visualized spine. There is a cavitary lesion in the right hilar region compatible with aspergilloma by history, unchanged. Impression IMPRESSION: Presumed aspergilloma in the right hilar region, unchanged. Right-sided rib fractures laterally with small right pleural effusion versus pleural thickening adjacent to them. ASSESSMENT: 72 year-old [place]istanian woman with history of pulmonary aspergilloma (s/p voriconazole x 7 months in 2015) admitted to [facility] [place] for hemoptysis x 2 days. Underwent bronchial artery embolization on 05/30 followed by RUL resection on 06/01. Cultures with peptostroptococcus and MAC. Pathology concerning for actinomyces and aspergillus. ID consulted - recommended voriconazole and augmentin pending final pathology report. PROBLEMS: 1. 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 Treatment plan as outlined below. Has follow-up with [facility] on 06/25 for management of underling pulmonary disease. 1. RUL Aspergilloma: Has only been on augmentin since discharge. Unable to receive voriconazole 2/2 insurance issues. Upon review of pathology - aspergillus is located within airways and not angioinvasive. Appropriately treated with voriconazole x 7 months in 2016 and s/p RUL resection (definitive treatment for aspergilloma). Given no evidence of angioinvasion on pathology, will hold further voriconazole. - Discontinue voriconazole. - Monitor clinically. 2. Pulmonary actinomyces infection: Pathology consistent with actinomyces. Of note, previously pathology from 2016 also with actinomyces, but never treated. Not growing on culture. Clinical symptoms consistent with pulmonary actinomyces. Will continue treatment with augmentin (for ease of dosing) for extended course. - Continue augmentin. 3. Pulmonary MAC: Tissue cultures from RUL resection now with MAC - sensitivities pending. In setting of history of severe pulmonary disease, will treat as true infectious process. Will likely need to begin extended course of treatment, pending sensitivities from Microbiology lab. - Follow-up AFB cultures from 06/01 for MAC sensitivities. - Begin treatment pending culture data. Problem List - Problems (1) Diabetes Code(s): E11.9 - TYPE 2 DIABETES MELLITUS WITHOUT COMPLICATIONS (2) Pulmonary aspergilloma Code(s): B44.9 - ASPERGILLOSIS, UNSPECIFIED
[2018-06-22 21:20] LABS: URINE APPEARANCE CLEAR; URINE BILIRUBIN NEGATIVE (<2.0 mg/dL); URINE COLOR YELLOW; URINE GLUCOSE (UA) 3+ (NEGATIVE); URINE KETONE NEGATIVE (NEGATIVE); URINE LEUK ESTERASE NEGATIVE (NEGATIVE); URINE NITRITE NEGATIVE (NEGATIVE); URINE PROTEIN 2+ (NEGATIVE); URINE UROBILINOGEN NEGATIVE mg/dL (0.2-1.0)
[2018-06-22 21:29] LABS: EPI CELLS RARE /HPF (FEW); URINE BACTERIA RARE /hpf (NONE SEEN); URINE HYALINE CAST 1 /lpf; URINE MUCUS FEW
[2018-06-22] MEDS ORDERED: VORICONAZOLE 200 MG/20 ML VIAL (RESTRICTED TO ID) IVPB SCH (22:00)
[2018-06-22] MEDS ORDERED: DEXTROSE 5%-0.45% SALINE 1,000 ML IV SCH (23:45)
[2018-06-22] MEDS: SODIUM CHLORIDE IVPB SCH (23:59)
[2018-06-22] MEDS: VORICONAZOLE IVPB SCH (23:59)
[2018-06-23 03:54] VITALS: BMI 26.6
[2018-06-23] MEDS ORDERED: ACETAMINOPHEN 325 MG TABLET (FP) ONE (06:41)
[2018-06-23] MEDS: ACETAMINOPHEN 325 MG TABLET (FP) PO PRN ×2 (06:57→13:35)
[2018-06-23] MEDS: SODIUM CHLORIDE 0.45% 1,000 ML IV SCH (06:58)
[2018-06-23] MEDS: INSULIN SLIDING SCALE (NOVOLOG) 1 VIAL SQ SCH ×5 (06:59→21:46)
[2018-06-23] MEDS ORDERED: PIPERACILLIN/TAZOB 3.375 GM 3.375 GM in DEXTROSE 5%-WATER - 50 ML IVPB ONE (07:00)
[2018-06-23] MEDS ORDERED: PIPERACILLIN/TAZOBACTAM 3.375 GM VIAL IVPB ONE ×2 (07:03→17:20)
[2018-06-23] MEDS ORDERED: DEXTROSE 5%-WATER - 50 ML IVPB ONE ×2 (07:03→17:21)
[2018-06-23] MEDS: metFORMIN HCL 500 MG TABLET (FP) PO SCH ×2 (07:05→17:41)
[2018-06-23] MEDS: IPRATROPIUM BR 0.02% 0.5 MG/2.5 ML VIAL.NEB. NEB SCH ×4 (08:17→20:30)
--- NOTE | 2018-06-23 08:41 | EKG ---
Test Reason : Blood Pressure : / mmHG Vent. Rate : 078 BPM Atrial Rate : 078 BPM P-R Int : 176 ms QRS Dur : 084 ms QT Int : 370 ms P-R-T Axes : 023 005 034 degrees QTc Int : 421 ms NORMAL SINUS RHYTHM MINIMAL VOLTAGE CRITERIA FOR LVH, MAY BE NORMAL VARIANT BORDERLINE ECG WHEN COMPARED WITH ECG OF 28-MAY-2018 11:10, NO SIGNIFICANT CHANGE WAS FOUND Confirmed by BALAJI SNOW, MONET ([id number]) on 06/23/2018 8:40:52 AM Referred By: Confirmed By:MONET CARPIO MD
[2018-06-23] MEDS ORDERED: PT OWN MED DRAWER 7, Y5N ONE (09:29)
[2018-06-23] MEDS ORDERED: INSULIN (NOVOLOG) ASPART 100 UNITS/ML 10ML VIAL ONE ×2 (10:27→21:14)
[2018-06-23] MEDS: PANTOPRAZOLE 20 MG TABLET (FP) PO SCH (10:29)
[2018-06-23] MEDS: ASPIRIN COATED 81 MG TABLET.EC PO SCH (10:29)
[2018-06-23] MEDS: SODIUM CHLORIDE IVPB SCH (12:26)
[2018-06-23] MEDS: VORICONAZOLE IVPB SCH (12:26)
[2018-06-23] MEDS ORDERED: POTASSIUM CHLORIDE ORAL LIQUID 20 MEQ/15 ML PO ONE (13:06)
[2018-06-23] MEDS ORDERED: POTASSIUM CHLORIDE TABS 10 MEQ TABLET.ER (FP) PO ONE (13:06)
--- NOTE | 2018-06-23 13:11 | HP ---
Admitting History and Physical - Admission History of Present Illness: s/p rt lobectomy for asperigolosis coghing 3 days and temp [id number] History Source: Patient, Family Member Limitations to Obtaining History: Language Barrier (diminised) - Past Medical History Pulmonary: Yes: Other (asperigolosis lung) Rheumatology: Yes: Other (lt cts) Endocrine: Yes: Diabetes Mellitus - Smoking History Smoking history: Never smoked Have you smoked in the past 12 months: No Aproximately how many cigarettes per day: 0 - Alcohol/Substance Use Hx Alcohol Use: No Home Medications - Allergies Allergies/Adverse Reactions: Allergies Allergy/AdvReac Type Severity Reaction Status Date / Time streptomycin [Streptomycin] Allergy Intermediate Rash Verified 06/22/18 15:39 COLOGNE Allergy Uncoded 06/22/18 15:39 hair dye Allergy Uncoded 06/22/18 15:39 - Home Medications Home Medications: Ambulatory Orders Alendronate Na [Fosamax (Weekly)] 70 mg PO Q7D 09/17/16 Glipizide 2.5 mg PO DAILY 09/17/16 metFORMIN HCL [Metformin ER Osmotic] 1,000 mg PO BID 09/17/16 Aspirin 81 mg PO DAILY 05/28/18 Omeprazole 20 mg PO DAILY 05/28/18 Simvastatin 20 mg PO HS 05/28/18 Family Disease History - Family Disease History Family History: Unremarkable Review of Systems - Review of Systems Respiratory: reports: Cough, SOB on Exertion Physical Examination Vital Signs: Vital Signs Temperature 97.4 F L 06/23/18 08:59 Pulse Rate 97 H 06/23/18 08:59 Respiratory Rate 24 H 06/23/18 08:59 Blood Pressure 127/59 L 06/23/18 08:59 O2 Sat by Pulse Oximetry (%) 98 06/23/18 10:30 Respiratory: Yes: Diminished Labs: CBC, BMP 06/22/18 16:45 06/22/18 17:52 Assessment/Plan replace kcl id pulm consults wastch lft sec ? vorisoazolin? cont atbx lorrainecttricia ruvalcaba do labs stat now id to talk to id at [facility]
--- NOTE | 2018-06-23 13:14 | PN ---
Progress Note (short form) - Note Progress Note: ID consult dictated imp/reccd rever, cough, s/p recent RUL lobectomy for aspergilloma 72 yo female s/p Right thoracotomy and RUL lobectomy for aspergilloma on 06/01 at [facility] discharged home 06/07 she has been doing well no cough no fevers no hemoptysis she saw Dr Franklin (ID [facility]) on 06/19 and was prescribed amox and voriconazole she was then told not to take the voriconazole and has been taking the amox for the last few days she has had increasing cough- yellow, castañeda sputum- no hemopotysis yesterday she had fever and came to ED she had cultures drawn of blood, ct scan - post op changes, and was given loading doses of iv voriconazole(2) of note LFTs were elevated prior to the voriconazole febrile overnight to 102 suggest repeat labs hold voriconazole until further information can be obtained repeat LFTs now aspergillus galactomannan, fungitell sputum culture-routine and fungal stat Influenza screen continue zosyn/vanco for possible HAP check legionella urinary antigen stat-levaquin one dose will try to contact her ID doctor to discuss- message left with answering service d/w Dr Franklin originally had embolization 05/30, then surgery 06/01 pathology with confined aspergilloma- no necrosis, no invasion noted +actinomyces, +atypical mycobacteria will hold on further voriconzole at this time Problem List - Problems (1) Fever Code(s): R50.9 - FEVER, UNSPECIFIED (2) 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
[2018-06-23] MEDS: VANCOMYCIN 1 GRAM (PRE-DOCKED) 1,000 MG/250 ML BAG IVPB SCH (14:11)
--- NOTE | 2018-06-23 14:41 | PN ---
Progress Note (short form) - Note Progress Note: PULMONARY CONSULTATION DICTATED 06/23/18 IMP FEVER ? PNEUMONIA COUGH H/O ASPERGILLOMA S/P RUL LOBECTOMY H/O PULMONARY TB DM HTN ELEVATED LFTS PLAN ABX PER ID CULTURES O2 NEEDED INHALED BRONCHODILATORS NEEDED ANTI-TUSSIVES INCENTIVE SPIROMETER F/U CHEST X-RAYS MONITOR LYTES,LFTS DR ROLLINS Problem List - Problems (1) Abnormal LFTs Code(s): R94.5 - ABNORMAL RESULTS OF LIVER FUNCTION STUDIES (2) Fever Code(s): R50.9 - FEVER, UNSPECIFIED (3) Diabetes Code(s): E11.9 - TYPE 2 DIABETES MELLITUS WITHOUT COMPLICATIONS (4) History of TB (tuberculosis) Code(s): Z86.11 - PERSONAL HISTORY OF TUBERCULOSIS (5) Pulmonary aspergilloma Code(s): B44.9 - ASPERGILLOSIS, UNSPECIFIED
--- NOTE | 2018-06-23 15:16 | CONS ---
DATE OF CONSULTATION: DATE OF DICTATION: 06/23/2018 CONSULTATION REQUESTED BY: Kevin Toro MD HISTORY OF PRESENT ILLNESS: The patient is a 72-year-old woman who was originally in the hospital in May with hemoptysis. She had a prior history of a right upper lobe mass-like lesion that was biopsied and had Aspergillus and Actinomyces. She completed a 7-month course of voriconazole and amoxicillin through February 2016. Then, in June 2016, she took a course of INH prophylaxis, which was 12 months. She returned to the hospital in May. At that time, she had hemoptysis and was brought to the hospital. She was seen here by Dr. Cody and transferred to [facility] on May 28. On May 30, she underwent an embolization and on June 01, she had a right thoracotomy and a right upper lobectomy. She was discharged home on June 07. She was seen in followup on June 19, 2018 with ID there, Dr. Franklin, and Dr. Villa, who recommended that she take amoxicillin. I spoke with Dr. Franklin today and she said they reviewed the pathology. There were no signs of any invasion or necrosis. They felt that this was a surgically removed aspergilloma and they recommended that she continue the amoxicillin for Actinomyces. Also, the tissue specimen was positive for atypical mycobacteria and they were awaiting further results of this. The patient was discharged home. Her daughter reports she was doing well until several days ago. She started having increased cough which is yellow. There is no hemoptysis. Yesterday, she was noted to have a fever of 102 and they called her primary, who recommended that they go to [facility], so they called an ambulance and were brought to [facility]. She has had no diarrhea or dysuria and is resting comfortably. PAST MEDICAL HISTORY: Notable for diabetes, hyperlipidemia, hypertension, nephrolithiasis. PAST SURGICAL HISTORY: section and recent right upper lobectomy. ALLERGIES: STREPTOMYCIN. HOSPITAL COURSE: After admission, she was evaluated by Thoracic Surgery in the emergency room, who noted that her cultures were negative but microscopy showed the Actinomyces and Aspergillus and she was given voriconazole IV. HOME MEDICATIONS: Her medications at home include metformin, simvastatin, omeprazole, glipizide, aspirin and weekly Fosamax. She was started on amoxicillin. REVIEW OF SYSTEMS: She denies chest pain, abdominal pain, nausea, vomiting, diarrhea or dysuria. Her daughter reports that she has a history of kidney stones. PHYSICAL EXAMINATION: General: She is resting comfortably. She is awake and alert. Vital Signs: Temperature 102.7, pulse 97, blood pressure 127/59, respiratory rate 24. She is saturating 98% on 2 liters. HEENT: Normocephalic. Her eyes are anicteric. Neck: Supple. Lungs: Diminished breath sounds at the right base. Heart: Regular rate and rhythm. Chest: The thoracotomy site is well healed. Abdomen: Soft, nontender. Extremities: No edema. Skin: She has no rash. LABORATORY DATA: White count was 14.8 yesterday. Hemoglobin was 10.8 yesterday. Platelets were 458. INR was 1.3. Chemistries were notable for an AST of 158, ALT of 122, alkaline phosphatase of 211. Urinalysis was notable for 3+ glucose, 2+ protein and one white cell. In May, her Aspergillus galactomannan was not done but her beta-1,3 glucan was negative. An aspergillus antibody was done and was negative. Her blood cultures and urine cultures have been sent. She had a CT scan of her chest which is difficult to read due to postoperative changes. There is a small interval right apical hydropneumothorax. There are some acute right rib fractures. She has right upper lobe para-mediastinal opacity which may represent infiltrate or post-surgical thickening. In summary, this is a 72-year-old woman with fever, cough and abnormal LFTs status post recent right upper lobe lobectomy for aspergilloma. I would suggest that we hold the voriconazole until further information can be obtained. I was able to speak with Dr. Franklin, who was able to confirm that the pathology showed no invasion and that this was a confined aspergilloma. Hence, they had not recommended the voriconazole. Given the abnormal LFTs, would suggest we do some stat repeat labs, hold the voriconazole for now, do an Aspergillus galactomannan, Fungitell, sputum culture, both routine and fungal, and a stat influenza screen. I would continue Zosyn and vancomycin for possible nosocomial pneumonia or hospital-acquired pneumonia. Would check a stat Legionella urinary antigen as well. We will make further recommendations based on these results. I spoke with her PMD, Dr. Toro, and I was able to reach her ID doctor, who is actually Dr. Villa, although Dr. Franklin returned my call and was kind enough to share all of this information. Further recommendations to follow. MEMO VELEZ M.D. [id number]
--- NOTE | 2018-06-23 15:36 | CONS ---
DATE OF CONSULTATION: 06/23/2018 REFERRING PHYSICIAN: Dr. Kevin Toro The patient is a 72-year-old white female known to me from previous hospitalization as well as office followup. Past medical history includes insulin-dependent diabetes mellitus, hypertension, hyperlipidemia, history of TB treated for 9 months 3 years ago, right upper aspergilloma status post right upper lobe lobectomy approximately 3 to 4 weeks ago at [facility] secondary to hemoptysis, admitted to [facility] on June 22 with complaint of 4-day history of cough, shortness of breath, and 1-day history of high fever and emesis Pt was recently hospitalized in May secondary to hemoptysis. At the time she had a CT scan of the chest that revealed right upper lobe aspergilloma. She was transferred to [facility], underwent a right thoracotomy and a right upper lobe lobectomy, intercostal flap and bronchial stump. The patient tolerated the procedure well without complications. She was doing well until 4 days prior to this admission when she started developing cough productive of yellowish sputum and yesterday on the day of admission developed a high fever at which time she presented to the emergency room. In the emergency room she was noted on CAT scan to have no obvious pneumonia. She had some bubbles near the intercostal flap and anterior right middle lobe. No acute infiltrates were appreciated. She was admitted to the floor. She was evaluated by Dr. Maravilla and placed on antibiotics today for possible community-acquired pneumonia. The patient is a nonsmoker. She recently traveled to [facility] in May. She was born in [facility] and moved to the [facility] years ago and she used to work on a farm. There is no recent history of hemoptysis. She has had some night sweats for the past few days. PAST MEDICAL HISTORY: Again, includes insulin-dependent diabetes mellitus, hypertension, right upper lobe lobectomy secondary to aspergilloma, history of hemoptysis secondary to aspergilloma, history of TB treated 3 years ago, as well as bronchiectasis. REVIEW OF SYSTEMS: Positive fever, positive chills, positive cough but no shortness of breath. No hemoptysis. No abdominal pain. Positive for 1 episode of emesis. No lower extremity edema. DISCHARGE MEDICATIONS: Include Tylenol, Zosyn, vancomycin, Glucophage, Atrovent, Lipitor, NovoLog, Levemir, Ecotrin and Protonix. PHYSICAL EXAMINATION: General: The patient is an elderly white female, well developed, well nourished , ill appearing, but in no acute distress. Vital Signs: She is currently febrile at 102.7. Blood pressure is 158/68, respiratory rate 20, O2 saturation 98% on 2 L. HEENT: Exam is normocephalic, atraumatic. Neck: Supple. Heart: Tachycardic. S1, S2. Chest: Few crackles on the right. Abdomen: Soft. Bowel sounds are positive. Extremities: No cyanosis or edema. LABORATORIES: WBC is 14.8, hemoglobin 10.8, hematocrit 31.6 with a platelet count of 458,000. INR is 1.33. Venous blood gas 7.46, PCO2 of 36 and PO2 of 129. Chemistries: Lactate level is 1.4, BUN 12, creatinine 0.5. LFTs: Alkaline phosphatase is 211, ALT is 122, AST 158. Chest CT as noted earlier. IMPRESSION: 1. Fever, etiology to be determined, rule out possible pneumonia. 2. Cough, possibly secondary to pneumonia. 3. Status post right upper lobe lobectomy secondary to aspergilloma,hemoptysis 4. History of hemoptysis secondary to aspergilloma, status post resection. 5. Insulin-dependent diabetes mellitus. 6. Hypertension. 7. History of pulmonary tuberculosis. PLAN: Broad-spectrum antibiotics as per Infectious Disease. Supplemental O2 as needed. Obtain cultures. Legionella and urinary antigen. Pneumococcal urinary antigen. Obtain followup chest x-rays. Antitussives, inhaled bronchodilators. MARGARITA ROLLINS M.D. KISHORE/[id number] MTDD
[2018-06-23 15:56] LABS: BASO % 0.1 % (0-2.0); HEMATOCRIT 28.9 % (32.4-45.2); HEMOGLOBIN 9.7 GM/dL (10.7-15.3); LYMPH % 5.2 % (8-40); MCH 27.7 pg (25.7-33.7); MCHC 33.6 g/dl (32.0-36.0); MEAN CELL VOLUME 82.5 fl (80-96); MONO % 5.6 % (3.8-10.2); NEUT % 89.1 % (42.8-82.8); PLATELET COUNT 395 K/MM3 (134-434); RBC 3.51 M/mm3 (3.60-5.2); RDW 14.6 % (11.6-15.6); WHITE BLOOD COUNT 19.5 K/mm3 (4.0-10.0)
[2018-06-23 16:11] LABS: ALBUMIN 2.2 g/dl (3.4-5.0); ALK PHOS 229 U/L (45-117); ANION GAP 10 MMOL/L (8-16); BILIRUBIN,TOTAL 0.4 mg/dL (0.2-1); BLOOD UREA NITROGEN 8 mg/dL (7-18); CALCIUM 8.3 mg/dL (8.5-10.1); CHLORIDE 102 mmol/L (98-107); CO2 26 mmol/L (21-32); CREATININE 0.6 mg/dL (0.55-1.3); GLUCOSE,RANDOM 222 mg/dL (74-106); POTASSIUM 3.6 mmol/L (3.5-5.1); SGOT/AST 101 U/L (15-37); SGPT/ALT 118 U/L (13-61); SODIUM 138 mmol/L (136-145); TOT PROT 6.3 g/dl (6.4-8.2)
[2018-06-23] MEDS: guaiFENesin/CODEINE 5 ML UNIT-DOSE CUPS PO PRN (17:32)
[2018-06-23] MEDS: PIPERACILLIN/TAZOB 3.375 GM 3.375 GM in DEXTROSE 5%-WATER - 50 ML IVPB SCH (19:01)
[2018-06-23] MEDS: ATORVASTATIN CA 10 MG TABLET (FP) PO SCH (21:39)
[2018-06-23] MEDS ORDERED: INSULIN (LEVEMIR) 100 UNITS/ML UNITS SQ SCH (22:00)
[2018-06-24] MEDS: IPRATROPIUM BR 0.02% 0.5 MG/2.5 ML VIAL.NEB. NEB SCH ×7 (00:20→23:52)
[2018-06-24] MEDS ORDERED: DEXTROSE 5%-WATER - 50 ML IVPB ONE ×3 (02:24→18:50)
[2018-06-24] MEDS ORDERED: PIPERACILLIN/TAZOBACTAM 3.375 GM VIAL IVPB ONE ×3 (02:24→18:50)
[2018-06-24] MEDS: INSULIN SLIDING SCALE (NOVOLOG) 1 VIAL SQ SCH ×6 (02:32→22:21)
[2018-06-24] MEDS: PIPERACILLIN/TAZOB 3.375 GM 3.375 GM in DEXTROSE 5%-WATER - 50 ML IVPB SCH ×3 (02:33→19:16)
[2018-06-24] MEDS: SODIUM CHLORIDE 0.45% 1,000 ML IV SCH ×2 (02:36→07:19)
[2018-06-24] MEDS: metFORMIN HCL 500 MG TABLET (FP) PO SCH ×2 (06:38→17:45)
[2018-06-24 08:43] LABS: BASO % 0.2 % (0-2.0); EOS % 0.9 % (0-4.5); HEMATOCRIT 28.4 % (32.4-45.2); LYMPH % 9.1 % (8-40); MCH 26.5 pg (25.7-33.7); MCHC 31.6 g/dl (32.0-36.0); MEAN CELL VOLUME 83.7 fl (80-96); MEAN PLT VOLUME 7.7 fl (7.5-11.1); MONO % 6.2 % (3.8-10.2); NEUT % 83.6 % (42.8-82.8); PLATELET COUNT 358 K/MM3 (134-434); RBC 3.39 M/mm3 (3.60-5.2); RDW 14.2 % (11.6-15.6); WHITE BLOOD COUNT 23.2 K/mm3 (4.0-10.0)
[2018-06-24 09:17] LABS: ALK PHOS 193 U/L (45-117); ANION GAP 10 MMOL/L (8-16); BILIRUBIN,TOTAL 0.5 mg/dL (0.2-1); BLOOD UREA NITROGEN 6 mg/dL (7-18); CALCIUM 7.9 mg/dL (8.5-10.1); CHLORIDE 103 mmol/L (98-107); CO2 27 mmol/L (21-32); CREATININE 0.4 mg/dL (0.55-1.3); GLUCOSE,RANDOM 69 mg/dL (74-106); POTASSIUM 3.2 mmol/L (3.5-5.1); SGOT/AST 33 U/L (15-37); SGPT/ALT 76 U/L (13-61); SODIUM 140 mmol/L (136-145); TOT PROT 5.9 g/dl (6.4-8.2)
[2018-06-24] MEDS: ASPIRIN COATED 81 MG TABLET.EC PO SCH (09:27)
[2018-06-24] MEDS: PANTOPRAZOLE 20 MG TABLET (FP) PO SCH (09:27)
[2018-06-24] MEDS: guaiFENesin/CODEINE 5 ML UNIT-DOSE CUPS PO PRN (09:36)
[2018-06-24] MEDS ORDERED: INSULIN (NOVOLOG) ASPART 100 UNITS/ML 10ML VIAL ONE (09:53)
[2018-06-24 09:58] LABS: ACANTHOCYTES 0; ANISOCYTOSIS 0; HELMET CELLS 0; HOWELL-JOLLY BODIES 0; MACROCYTOSIS 0; OVALOCYTE 0; PLATELET ESTIMATE NORMAL; ROULEAU 0; SICKELED CELLS 0; TARGET CELLS 0; TEAR DROP CELLS 0; TOXIC GRANULATION 0
--- NOTE | 2018-06-24 10:11 | PN ---
Progress Note (short form) - Note Progress Note: Thoracic Surgery: WBC up, fever curve? down? RR increased. Requiring oxygen. Concern for empyema/bronchopleural fistula as this is a real risk in fungal surgery. Will order repeat CT chest with iv contrast for tomorrow to see if there is drainable area. If does not improve in next two days, will do bronchoscopy on Monday. If BPF, would require transfer for long-term management that may include endobronchial valve with drainage or Eloessar flap (thoracotomy with open chest) . Have low threshold to transfer to ICU if oxygen requirements increase. Problem List - Problems (1) Diabetes Code(s): E11.9 - TYPE 2 DIABETES MELLITUS WITHOUT COMPLICATIONS (2) Pulmonary aspergilloma Code(s): B44.9 - ASPERGILLOSIS, UNSPECIFIED
[2018-06-24] MEDS: POTASSIUM CHLORIDE TABS 20 MEQ TABLET.ER (FP) PO ONE ×2 (12:32→15:02)
--- NOTE | 2018-06-24 12:34 | PN ---
Progress Note, Physician History of Present Illness: pulmonary Thoracic surgery follow up noted ,alert,feeling better ,+cough,tmax 100.8 - Current Medication List Current Medications: Active Medications Acetaminophen (Tylenol -) 650 mg PO Q4H PRN PRN Reason: TEMP OVER 101 Last Admin: 06/23/18 13:35 Dose: 650 mg Aspirin (Ecotrin -) 81 mg PO DAILY [facility] Last Admin: 06/24/18 09:27 Dose: 81 mg Atorvastatin Calcium (Lipitor -) 10 mg PO HS [facility] Last Admin: 06/23/18 21:39 Dose: Not Given Guaifenesin/Codeine Phosphate (Robitussin Ac -) 5 ml PO Q6H PRN PRN Reason: COUGH Last Admin: 06/24/18 09:36 Dose: 5 ml Sodium Chloride (1/2 Normal Saline) 1,000 mls @ 83 mls/hr IV ASDIR [facility] Last Admin: 06/24/18 07:19 Dose: Not Given Piperacillin Sod/Tazobactam (Sod 3.375 gm/ Dextrose) 50 mls @ 100 mls/hr IVPB Q8H-IV [facility] Last Admin: 06/24/18 09:28 Dose: 100 mls/hr Vancomycin HCl (Vancomycin (Pre-Docked)) 1,000 mg in 250 mls @ 166.667 mls/hr IVPB Q24H [facility]; Protocol Last Admin: 06/23/18 14:11 Dose: 166.667 mls/hr Insulin Aspart (Novolog Vial Sliding Scale -) 1 vial SQ Q4HPO [facility]; Protocol Last Admin: 06/24/18 09:56 Dose: 2 units Insulin Detemir (Levemir Vial) 20 units SQ [facility] Ipratropium [place] (Atrovent 0.02% Nebulizer -) 1 amp NEB RQ4H [facility] Last Admin: 06/24/18 12:05 Dose: 1 amp Metformin HCl (Glucophage -) 1,000 mg PO BIDAC [facility] Last Admin: 06/24/18 06:38 Dose: 1,000 mg Pantoprazole Sodium (Protonix -) 20 mg PO DAILY [facility] Last Admin: 06/24/18 09:27 Dose: 20 mg - Objective Vital Signs: Vital Signs Temperature 98.8 F 06/24/18 08:58 Pulse Rate 101 H 06/24/18 08:58 Respiratory Rate 24 H 06/24/18 08:58 Blood Pressure 135/54 L 06/24/18 08:58 O2 Sat by Pulse Oximetry (%) 97 06/24/18 01:55 Constitutional: Yes: Well Nourished, Calm Eyes: Yes: WNL HENT: Yes: WNL Neck: Yes: WNL Cardiovascular: Yes: Regular Rate and Rhythm, S1, S2 Respiratory: Yes: Rhonchi (few crackles,rhonchi r base) Gastrointestinal: Yes: Normal Bowel Sounds, Soft Extremities: Yes: WNL Edema: No Labs: CBC, BMP 06/24/18 07:30 06/24/18 07:30 INR, PTT INR 1.33 (0.83-1.09) H 06/22/18 17:00 Problem List - Problems (1) Abnormal LFTs Code(s): R94.5 - ABNORMAL RESULTS OF LIVER FUNCTION STUDIES (2) Fever Code(s): R50.9 - FEVER, UNSPECIFIED (3) Diabetes Code(s): E11.9 - TYPE 2 DIABETES MELLITUS WITHOUT COMPLICATIONS (4) History of TB (tuberculosis) Code(s): Z86.11 - PERSONAL HISTORY OF TUBERCULOSIS (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
--- NOTE | 2018-06-24 12:45 | PN ---
Progress Note (short form) - Note Progress Note: fevers improved coughs everytimes she talks poor appetite Vital Signs Period Temp Pulse Resp BP Sys/Mueller Pulse Ox Last 24 Hr 98.1 F-102.7 F 88-101 20-24 113-158/48-68 97 cor rrr lungs crackles right base abd soft,nt ext no edema CBC, BMP 06/24/18 07:30 06/24/18 07:30 influenza antigen negative Microbiology 06/22/18 17:19 Urine - Urine Clean Catch Urine Culture - Final NO GROWTH OBTAINED 06/22/18 17:00 Blood - Peripheral Venous Blood Culture - Preliminary NO GROWTH OBTAINED AFTER 24 HOURS, INCUBATION TO CONTINUE FOR 4 DAYS. 06/22/18 17:00 Blood - Peripheral Venous Blood Culture - Preliminary NO GROWTH OBTAINED AFTER 24 HOURS, INCUBATION TO CONTINUE FOR 4 DAYS. 06/23/18 14:30 Urine For Antigen Detection Legionella Antigen - Final- negative 06/23/18 14:30 Urine For Antigen Detection Streptococcus pneumoniae Antigen (M - Final-negative a/p fever, cough, s/p recent RUL lobectomy for aspergilloma d/w Dr Franklin yesterday originally had embolization 05/30, then surgery 06/01 pathology with confined aspergilloma- no necrosis, no invasion noted so no voriconazole given post op +actinomyces, +atypical mycobacteria will hold on further voriconzole at this time thoracic surgery noted reviewed cultures pending for repeat ct scan chest today-r/o empyem continue vancomycin and zosyn if fevers recur will add voriconazole and await cultures and serologies Problem List - Problems (1) Fever Code(s): R50.9 - FEVER, UNSPECIFIED (2) 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
[2018-06-24] MEDS: VANCOMYCIN 1 GRAM (PRE-DOCKED) 1,000 MG/250 ML BAG IVPB SCH (14:35)
[2018-06-24 14:52] LABS: ARTERIAL BLD GAS O2 SATURATION 97.4 % (90-98.9); ARTERIAL BLOOD GAS BASE EXCESS 3.1 meq/l (-2-2); ARTERIAL BLOOD GAS PCO2 33.5 mmHg (35-45); ARTERIAL BLOOD GAS PO2 88.6 mmHg (70-100)
[2018-06-24 14:53] LABS: ALLENS TEST POSITIVE
[2018-06-24] MEDS ORDERED: TUBERCULIN PPD 5 TU/0.1ML SYRINGE (IN PATIENT USE ONLY) ID ONE (15:00)
--- NOTE | 2018-06-24 16:33 | PN ---
Progress Note, Physician History of Present Illness: pt looks comfotable but resp rate 26 do abg stat results resp alkilosis wbc up no fever ? empyema r/o pulm embolism spoke to pulm agreed ct chest now [facility] - Current Medication List Current Medications: Active Medications Acetaminophen (Tylenol -) 650 mg PO Q4H PRN PRN Reason: TEMP OVER 101 Last Admin: 06/23/18 13:35 Dose: 650 mg Aspirin (Ecotrin -) 81 mg PO DAILY [facility] Last Admin: 06/24/18 09:27 Dose: 81 mg Atorvastatin Calcium (Lipitor -) 10 mg PO HS [facility] Last Admin: 06/23/18 21:39 Dose: Not Given Guaifenesin/Codeine Phosphate (Robitussin Ac -) 5 ml PO Q6H PRN PRN Reason: COUGH Last Admin: 06/24/18 09:36 Dose: 5 ml Sodium Chloride (1/2 Normal Saline) 1,000 mls @ 83 mls/hr IV ASDIR [facility] Last Admin: 06/24/18 07:19 Dose: Not Given Piperacillin Sod/Tazobactam (Sod 3.375 gm/ Dextrose) 50 mls @ 100 mls/hr IVPB Q8H-IV [facility] Last Admin: 06/24/18 09:28 Dose: 100 mls/hr Vancomycin HCl (Vancomycin (Pre-Docked)) 1,000 mg in 250 mls @ 166.667 mls/hr IVPB Q24H [facility]; Protocol Last Admin: 06/24/18 14:35 Dose: 166.667 mls/hr Insulin Aspart (Novolog Vial Sliding Scale -) 1 vial SQ Q4HPO [facility]; Protocol Last Admin: 06/24/18 13:52 Dose: Not Given Insulin Detemir (Levemir Vial) 20 units SQ HS [facility] Ipratropium [place] (Atrovent 0.02% Nebulizer -) 1 amp NEB RQ4H [facility] Last Admin: 06/24/18 15:09 Dose: 1 amp Metformin HCl (Glucophage -) 1,000 mg PO BIDAC [facility] Last Admin: 06/24/18 06:38 Dose: 1,000 mg Pantoprazole Sodium (Protonix -) 20 mg PO DAILY [facility] Last Admin: 06/24/18 09:27 Dose: 20 mg - Objective Vital Signs: Vital Signs Temperature 100.7 F H 06/24/18 15:05 Pulse Rate 109 H 06/24/18 15:05 Respiratory Rate 22 H 06/24/18 15:05 Blood Pressure 136/66 06/24/18 15:05 O2 Sat by Pulse Oximetry (%) 97 06/24/18 01:55 Constitutional: Yes: Calm Eyes: Yes: WNL HENT: Yes: WNL Neck: Yes: WNL Respiratory: Yes: SOB on Exertion, Tachypnea Gastrointestinal: Yes: WNL ...Rectal Exam: Yes: Deferred Genitourinary: Yes: WNL Breast(s): Yes: WNL Extremities: Yes: WNL Edema: No Peripheral Pulses WNL: Yes Integumentary: Yes: WNL Neurological: Yes: WNL ...Motor Strength: WNL Psychiatric: Yes: WNL Labs: CBC, BMP 06/24/18 07:30 06/24/18 07:30 INR, PTT INR 1.33 (0.83-1.09) H 06/22/18 17:00 Assessment/Plan ct chest [facility] resp rx q 1hr for 2 hrs than q 4 hrs chk labs in am
[2018-06-24] MEDS ORDERED: IPRATROPIUM BR 0.02% 0.5 MG/2.5 ML VIAL.NEB. NEB PRN (16:34)
[2018-06-24] MEDS ORDERED: PT OWN MED DRAWER 7, Y5N ONE (19:21)
[2018-06-24] MEDS ORDERED: INSULIN (LEVEMIR) 100 UNITS/ML UNITS SQ SCH (22:00)
[2018-06-24] MEDS: ATORVASTATIN CA 10 MG TABLET (FP) PO SCH (22:18)
[2018-06-24] MEDS: ACETAMINOPHEN 325 MG TABLET (FP) PO PRN (22:18)
[2018-06-25] MEDS ORDERED: PIPERACILLIN/TAZOBACTAM 3.375 GM VIAL IVPB ONE (01:53)
[2018-06-25] MEDS ORDERED: DEXTROSE 5%-WATER - 50 ML IVPB ONE (01:53)
[2018-06-25] MEDS: PIPERACILLIN/TAZOB 3.375 GM 3.375 GM in DEXTROSE 5%-WATER - 50 ML IVPB SCH (02:19)
[2018-06-25] MEDS: INSULIN SLIDING SCALE (NOVOLOG) 1 VIAL SQ SCH ×3 (03:02→09:40)
[2018-06-25] MEDS: guaiFENesin/CODEINE 5 ML UNIT-DOSE CUPS PO PRN (04:15)
[2018-06-25] MEDS: IPRATROPIUM BR 0.02% 0.5 MG/2.5 ML VIAL.NEB. NEB SCH ×4 (04:50→15:40)
[2018-06-25] MEDS: metFORMIN HCL 500 MG TABLET (FP) PO SCH (06:32)
[2018-06-25 07:32] LABS: BASO % 0.3 % (0-2.0); EOS % 1.3 % (0-4.5); HEMATOCRIT 26.2 % (32.4-45.2); HEMOGLOBIN 8.3 GM/dL (10.7-15.3); LYMPH % 3.8 % (8-40); MCH 26.4 pg (25.7-33.7); MCHC 31.8 g/dl (32.0-36.0); MEAN CELL VOLUME 83.1 fl (80-96); MEAN PLT VOLUME 7.9 fl (7.5-11.1); MONO % 5.1 % (3.8-10.2); NEUT % 89.5 % (42.8-82.8); PLATELET COUNT 340 K/MM3 (134-434); RBC 3.15 M/mm3 (3.60-5.2); RDW 14.8 % (11.6-15.6); WHITE BLOOD COUNT 17.2 K/mm3 (4.0-10.0)
[2018-06-25] MEDS ORDERED: VORICONAZOLE IVPB SCH (08:00)
[2018-06-25] MEDS ORDERED: SODIUM CHLORIDE IVPB SCH (08:00)
[2018-06-25 08:10] LABS: ALBUMIN 1.8 g/dl (3.4-5.0); ALK PHOS 213 U/L (45-117); ANION GAP 8 MMOL/L (8-16); BILIRUBIN,TOTAL 0.6 mg/dL (0.2-1); BLOOD UREA NITROGEN 7 mg/dL (7-18); CALCIUM 7.9 mg/dL (8.5-10.1); CHLORIDE 103 mmol/L (98-107); CO2 28 mmol/L (21-32); CREATININE 0.4 mg/dL (0.55-1.3); GLUCOSE,RANDOM 197 mg/dL (74-106); POTASSIUM 3.2 mmol/L (3.5-5.1); SGOT/AST 142 U/L (15-37); SGPT/ALT 110 U/L (13-61); SODIUM 139 mmol/L (136-145); TOT PROT 5.6 g/dl (6.4-8.2)
[2018-06-25] MEDS ORDERED: PIPERACILLIN/TAZOBACTAM 4.5 GM VIAL IVPB ONE (09:09)
[2018-06-25] MEDS ORDERED: PT OWN MED DRAWER 7, Y5N ONE (09:09)
[2018-06-25] MEDS ORDERED: DEXTROSE 5%-WATER 100 ML IVPB ONE (09:09)
[2018-06-25 09:28] LABS: ANISOCYTOSIS 1+; MACROCYTOSIS 0; OVALOCYTE 2+; PLATELET ESTIMATE NORMAL
[2018-06-25] MEDS ORDERED: PIPERACILLIN/TAZOB 4.5 GM 4.5 GM in DEXTROSE 5%-WATER 100 ML IVPB SCH (10:00)
--- NOTE | 2018-06-25 10:32 | PN ---
Progress Note, Physician Chief Complaint: comfotable vss no temp good aeration lungs less sob no diapfoesis ? less iv?? - Current Medication List Current Medications: Active Medications Acetaminophen (Tylenol -) 650 mg PO Q4H PRN PRN Reason: TEMP OVER 101 Last Admin: 06/24/18 22:18 Dose: 650 mg Aspirin (Ecotrin -) 81 mg PO DAILY [facility] Last Admin: 06/24/18 09:27 Dose: 81 mg Atorvastatin Calcium (Lipitor -) 10 mg PO HS [facility] Last Admin: 06/24/18 22:18 Dose: 10 mg Guaifenesin/Codeine Phosphate (Robitussin Ac -) 5 ml PO Q6H PRN PRN Reason: COUGH Last Admin: 06/25/18 04:15 Dose: 5 ml Vancomycin HCl (Vancomycin (Pre-Docked)) 1,000 mg in 250 mls @ 166.667 mls/hr IVPB Q24H [facility]; Protocol Last Admin: 06/24/18 14:35 Dose: 166.667 mls/hr Voriconazole 400 mg/ Sodium (Chloride) 140 mls @ 93.333 mls/hr IVPB BID [facility] Stop: 06/25/18 23:29 Last Admin: 06/25/18 09:27 Dose: 93.333 mls/hr Piperacillin Sod/Tazobactam (Sod 4.5 gm/ Dextrose) 100 mls @ 200 mls/hr IVPB Q8H-IV [facility]; Protocol Last Admin: 06/25/18 09:26 Dose: 200 mls/hr Insulin Aspart (Novolog Vial Sliding Scale -) 1 vial SQ Q4HPO [facility]; Protocol Last Admin: 06/25/18 09:40 Dose: Not Given Insulin Detemir (Levemir Vial) 20 units SQ HS [facility] Last Admin: 06/24/18 22:19 Dose: Not Given Ipratropium [place] (Atrovent 0.02% Nebulizer -) 1 amp NEB RQ4H [facility] Last Admin: 06/25/18 07:35 Dose: 1 amp Ipratropium [place] (Atrovent 0.02% Nebulizer -) 1 amp NEB Q1H PRN PRN Reason: WHEEZING Metformin HCl (Glucophage -) 1,000 mg PO BIDAC [facility] Last Admin: 06/25/18 06:32 Dose: Not Given Pantoprazole Sodium (Protonix -) 20 mg PO DAILY [facility] Last Admin: 06/24/18 09:27 Dose: 20 mg Tuberculin PPD (Tubersol Intermediate Strength) 5 tu ID ONCE ONE Stop: 06/25/18 12:01 - Objective Vital Signs: Vital Signs Temperature 98.4 F 06/25/18 09:24 Pulse Rate 83 06/25/18 09:24 Respiratory Rate 22 H 06/25/18 09:24 Blood Pressure 140/67 06/25/18 09:24 O2 Sat by Pulse Oximetry (%) 95 06/24/18 21:00 Constitutional: Yes: No Distress, Calm Eyes: Yes: WNL HENT: Yes: WNL Neck: Yes: WNL Cardiovascular: Yes: WNL Respiratory: Yes: WNL Gastrointestinal: Yes: WNL Genitourinary: Yes: WNL Breast(s): Yes: WNL, Gynecomastia Extremities: Yes: WNL Edema: No Peripheral Pulses WNL: Yes Integumentary: Yes: WNL Neurological: Yes: WNL ...Motor Strength: WNL Psychiatric: Yes: WNL Labs: CBC, BMP 06/25/18 06:30 06/25/18 06:30 INR, PTT INR 1.33 (0.83-1.09) H 06/22/18 17:00 Assessment/Plan iterventional cath rt lung toda npo asa xstoped but will not deter from doing proceure as per chst sx ? [id number] to [facility] after procedure iv at 50 cc hr
[2018-06-25] MEDS ORDERED: SODIUM CHLORIDE 1,000 ML IV SCH (10:45)
[2018-06-25] MEDS: ASPIRIN COATED 81 MG TABLET.EC PO SCH (11:41)
[2018-06-25] MEDS: PANTOPRAZOLE 20 MG TABLET (FP) PO SCH (11:41)
[2018-06-25] MEDS ORDERED: TUBERCULIN PPD 5 TU/0.1ML SYRINGE (IN PATIENT USE ONLY) ID ONE (12:00)
[2018-06-25] MEDS ORDERED: VANCOMYCIN 1 GRAM (PRE-DOCKED) 1,000 MG/250 ML BAG IVPB SCH (14:00)
--- NOTE | 2018-06-25 16:17 | PN ---
Progress Note (short form) - Note Progress Note: seen in recovery room awaiting transfer to [facility] [place] s/p IR drainage effusion- Vital Signs Period Temp Pulse Resp BP Sys/Mueller Pulse Ox Last 24 Hr 97.9 F-102 F 81-116 18-30 117-176/55-89 95-99 cor-rrr lungs decreased bs right base abd soft,nt ext no edema CBC, BMP 06/25/18 06:30 06/25/18 06:30 Microbiology 06/25/18 14:00 Abscess Gram Stain - Final 06/23/18 14:50 Sputum - Expectorated Gram Stain - Final 06/23/18 14:50 Sputum - Expectorated Sputum Culture - Preliminary NORMAL RESPIRATORY CARMEN 06/22/18 17:00 Blood - Peripheral Venous Blood Culture - Preliminary NO GROWTH OBTAINED AFTER 48 HOURS, INCUBATION TO CONTINUE FOR 3 DAYS. 06/22/18 17:00 Blood - Peripheral Venous Blood Culture - Preliminary NO GROWTH OBTAINED AFTER 48 HOURS, INCUBATION TO CONTINUE FOR 3 DAYS. 06/22/18 17:19 Urine - Urine Clean Catch Urine Culture - Final NO GROWTH OBTAINED 06/23/18 14:30 Urine For Antigen Detection Legionella Antigen - Final 06/23/18 14:30 Urine For Antigen Detection Streptococcus pneumoniae Antigen (M - Final influenza screen negative a/p fever, cough, s/p recent RUL lobectomy for aspergilloma d/w Dr Cody today possible BPF ?empyema on vanco/zosyn voriconzole added empirically this am pending serologies and cultures will have to monitory LFTs closely for transfer to [place] today d/w family at bedside Problem List - Problems (1) Fever Code(s): R50.9 - FEVER, UNSPECIFIED (2) 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
[2018-06-25] MEDS ORDERED: ALBUTEROL SO4 0.083% IH SOL 2.5 MG/3 ML VIAL.NEB. NEB ONE (16:50)
[2018-06-25 18:10] VITALS: BP 155/68; PULSE 82; TEMP 98.4
[2018-06-28 12:28] LABS: ASPERGIL AG 0.05 Index (0.00-0.49)
== END 2018-06-25 17:50 | disposition short-term general hospital (02) | DRG 205 ==
LOC: JER 15:32 → JERBED 23:37 → J5S 06-23 03:17 → JSAMEDAYSX 06-25 17:09
PROVIDERS: ADMIT Family Medicine; ATTEND Family Medicine
PROC: 0W9930Z Drainage of Right Pleural Cavity with Drainage Device, Percutaneous Approach (ICD-10-PCS; principal; 2018-06-25 12:30)
DX: J95.89 Other postprocedural complications and disorders of respiratory system, not elsewhere classified (principal); J85.2 Abscess of lung without pneumonia; J86.0 Pyothorax with fistula; B44.9 Aspergillosis, unspecified; J94.2 Hemothorax; E11.9 Type 2 diabetes mellitus without complications; E78.5 Hyperlipidemia, unspecified; I10 Essential (primary) hypertension
CPT/HCPCS: 36415; 36600; 49405; 71045-TC-FY; 71250-TC; 71275-TC; 76098-TC-FY; 76380-TC; 80053; 81003; 81015; 82550; 82803; 82962; 83605; 84484; 85025; 85610; 85730; 87040; 87070; 87075; 87076; 87086; 87102; 87116; 87205; 87206; 87210; 87305; 87449; 87804; 87899; 93005; 93010; 94640; 94760; 99282-25; C1729; C1769; G0480; J0131; J7030

== ENCOUNTER → 2018-10-15 | Day surgery (SDC) | payer OTHER ==
--- NOTE | 2018-10-17 15:01 | PATH ---
Surgical Pathology Report Patient Name: BESSIE GONSALES [facility]. Rec. #: [id number] /Age/Gender: 1945 (Age: 72) / F Account: [id number] Location: RADIOLOGY [facility] Taken: 10/15/2018 Received: 10/15/2018 Reported: 10/18/2018 Physicians: Marj Beebe M.D. Specimen(s) Received A: RIGHT BREAST CORE BIOPSY 12:00 B: RIGHT BREAST CORE BIOPSY -11:00 Clinical History Nonpalpable lesion Ultrasound findings: Suspicious Final Diagnosis A. RIGHT BREAST, 12:00, 1.15 CM MASS, CORE BIOPSY: INVASIVE MAMMARY CARCINOMA, WITH DUCTAL AND LOBULAR COMPONENTS, MEASURING 0.6 CM IN GREATEST DIMENSION ON THE SLIDE. INVASIVE DUCTAL CARCINOMA COMPONENT IS WELL DIFFERENTIATED. INVASIVE LOBULAR CARCINOMA COMPONENT IS MODERATELY DIFFERENTIATED , CLASSIC TYPE. LOBULAR CARCINOMA IN SITU (LCIS),CLASSIC TYPE PRESENT. Results of Estrogen Receptor (ER) and Progesterone Receptor (NY) studies performed on block "A1" at [facility] are as follows: ER (clone [id number] mouse monoclonal antibody by [employer]): 100% nuclear staining with strong intensity (positive), on both ductal and lobular carcinoma. NY (clone16 mouse monoclonal antibody by [employer]): 95% nuclear staining with moderate to strong intensity (positive) on both ductal and lobular carcinoma. Comment: Immunohistochemical stains performed and interpreted at [facility] show the following results: smooth muscle myosin heavy chain and p63 show loss of the myoepithelial cell layer in the areas of invasive carcinoma. E-Cadherin demonstrates loss membranous staining in the areas of invasive lobular carcinoma and lobular carcinoma in situ. P120 performed at [place], [place] ([id number]) and interpreted at [facility] shows cytoplasmic staining in the lobular carcinoma, while shows membranous staining in the invasive ductal carcinoma. B. RIGHT BREAST, 10 -11:00, 0.9 CM MASS, CORE BIOPSY: INVASIVE MAMMARY CARCINOMA, MODERATELY DIFFERENTIATED, WITH BOTH DUCTAL AND LOBULAR FEATURES, AND ASSOCIATED MICROCALCIFICATIONS, MEASURING 1.0 CM ON THE SLIDE. CARCINOMA IN SITU WITH DUCTAL AND LOBULAR FREATURES PRESENT. Results of Estrogen Receptor (ER) and Progesterone Receptor (NY) studies performed on block "B1" at [facility] are as follows: ER (clone [id number] mouse monoclonal antibody by [employer]): 100% nuclear staining with strong intensity (Positive). NY (clone16 mouse monoclonal antibody by [employer]): 95% nuclear staining with moderate to strong intensity (Positive). Comment: Immunohistochemical stain E-Cadherin on block B1 performed and interpreted at [facility] demonstrates focally loss membranous staining in the areas of invasive carcinoma. P120 performed at [place], [place] ([id number]) and interpreted at [facility] shows cytoplasmic staining and focally membranous staining. Positive and negative controls (internal if applicable) show appropriate results. Formalin fixation and cold ischemic times are within current ASCO/CAP recommendations for ER, [place] and Her2 testing. Reports for Her 2 and Ki-67 to follow. Intradepartmental case reviewed with concordance on diagnosis. This case was discussed with Dr. Morales on October 17, 2018. Electronically Signed Herman Taveras M.D. Amendments Amended: 10/18/2018 Previous Signout Date: 10/17/2018 Comment: Specimen B: In view of immunohistochemstry study and tumor morphology, the final diagnosis is best classified as invasive mammary carcinoma with both ductal and lobular features. Addendum Reported: 10/19/2018 Addendum Diagnosis Biomarker Studies Results of Her2 (IHC) & Ki-67 studies performed on this specimen (block A1) at [place], [place] ([id number]) interpreted at [facility] are as follows: Her2 IHC (EP3 from [employer], formerly known as [id number], using Turner Polymer Refine detection kit): Negative (1+) Ki-67: ~10% (low proliferative index) Herman Taveras M.D. Gross Description A. Received in formalin labeled "right 12:00," are 2 castañeda-yellow, cylindrical portions of fibroadipose tissue averaging 1.0 cm in length and 0.1 cm in diameter. The specimens are submitted in toto in one cassette. B. Received in formalin labeled "right 10-11:00," are 3 castañeda-yellow, cylindrical portions of fibroadipose tissue averaging 1.3 cm in length and 0.1 cm in diameter. The specimens are submitted in toto in one cassette. Time to formalin fixation: Less than one minute Total formalin fixation time: Approximately 7 hours. 10/15/2018 [facility]10/15/2018
== END | disposition home or self-care (01) ==
LOC: JRADUS 10:00 → JRADUS-SUR 10:00
PROVIDERS: ATTEND Family Medicine
PROC: 0HBT3ZX Excision of Right Breast, Percutaneous Approach, Diagnostic (ICD-10-PCS; principal; 2018-10-15)
DX: C50.411 Malignant neoplasm of upper-outer quadrant of right female breast (principal); C50.811 Malignant neoplasm of overlapping sites of right female breast; Z17.0 Estrogen receptor positive status [ER+]; N63.11 Unspecified lump in the right breast, upper outer quadrant; N63.10 Unspecified lump in the right breast, unspecified quadrant
CPT/HCPCS: 19083; 19084; 87899; 88305-TC; 88341-TC; 88342-TC; A4648

== ENCOUNTER 2022-04-01 03:55 | Day surgery (SDC) | payer OTHER ==
[2022-03-31 09:50] VITALS: BMI 29.2
[2022-04-01] MEDS ORDERED: LIDOCAINE HCL/PF 1% SDV 5ML VIAL ONE (07:26)
[2022-04-01] MEDS ORDERED: DEXAMETHASONE SOD PHOSPHATE 10 MG/1 ML VIAL ONE (07:26)
[2022-04-01] MEDS ORDERED: BUPIVACAINE HCL/PF 0.75% 10 ML VIAL ONE (07:33)
[2022-04-01] MEDS ORDERED: BUPIVACAINE HCL/PF 0.5% (5MG/ML) 10 ML VIAL ONE (07:34)
[2022-04-01] MEDS ORDERED: TRIAMCINOLONE ACET 40MG/1ML VIAL IJ ONE ×2 (09:41→09:43)
[2022-04-01] MEDS ORDERED: BUPIVACAINE HCL/PF 0.5% (5MG/ML) 10 ML VIAL IJ ONE (09:43)
[2022-04-01] MEDS ORDERED: LIDOCAINE HCL 1% PRESERVATIVE FREE - 30ML VIAL IJ ONE (09:43)
[2022-04-01 10:37] VITALS: RESP 18
[2022-04-01 11:04] VITALS: BP 120/70; PULSE 70; TEMP 97.6
== END 2022-04-01 10:55 | disposition home or self-care (01) ==
LOC: JASU-SURG 03:55
PROVIDERS: ATTEND Pain Medicine Pain Medicine
PROC: 3E0T33Z Introduction of Anti-inflammatory into Peripheral Nerves and Plexi, Percutaneous Approach (ICD-10-PCS; 2022-04-01)
PROC: 3E0T3BZ Introduction of Anesthetic Agent into Peripheral Nerves and Plexi, Percutaneous Approach (ICD-10-PCS; principal; 2022-04-01 09:30)
DX: G89.4 Chronic pain syndrome (principal); R07.82 Intercostal pain; I10 Essential (primary) hypertension; E11.9 Type 2 diabetes mellitus without complications; Z79.84 Long term (current) use of oral hypoglycemic drugs
CPT/HCPCS: 76000-TC-FY; J1100